=== PATIENT | female | born 1950 | race Caucasian/White ===

== ENCOUNTER 2022-09-02 11:10 | Outpatient (OUT) | payer MEDICARE, OTHER, SELFPAY ==
[2022-09-02 11:58] LABS: Basophils Percent Auto 0.8 % (0.2-2.0); Eosinophils Absolute Auto 0.1 10^3/uL (0.0-0.7); Eosinophils Percent Auto 2.8 % (0.9-7.0); Hematocrit 38.6 % (36.0-48.0); Hemoglobin 12.7 g/dL (12.0-16.0); Immature Granulocytes Abs Auto 0.02 10^3/uL (0.00-0.03); Immature Granulocytes Pct Auto 0.4 % (0.0-0.5); Lymphocytes Absolute Auto 0.9 10^3/uL (1.2-3.8); Lymphocytes Percent Auto 17.9 % (20.5-60.0); Mean Corpuscular HGB Conc 32.9 g/dL (29.9-35.2); Mean Corpuscular Hemoglobin 29.2 pg (26.7-34.0); Mean Corpuscular Volume 88.7 fL (81.0-99.0); Mean Platelet Volume 11.3 fL (9.5-13.5); Monocytes Absolute Auto 0.5 10^3/uL (0.3-0.8); Monocytes Percent Auto 10.6 % (1.7-12.0); Neutrophils Absolute Auto 3.4 10^3/uL (1.4-6.5); Neutrophils Percent Auto 67.5 % (43.0-75.0); Platelet Count 172 10^3/uL (150-450); Red Blood Count 4.35 10^6/uL (4.20-5.40); Red Cell Distribution Width 13.1 % (11.0-15.0); White Blood Count 5.1 10^3/uL (4.0-11.0)
[2022-09-02 12:45] LABS: Alanine Aminotransferase 33 U/L (14-59); Albumin Level 3.6 g/dL (3.4-5.0); Alkaline Phosphatase 104 U/L (46-116); Anion Gap 10.2; Aspartate Amino Transferase 28 U/L (15-37); BUN Creatinine Ratio 22.2; Bilirubin Total 0.6 mg/dL (0.2-1.0); Calcium 8.9 mg/dL (8.5-10.1); Carbon Dioxide 29.5 mmol/L (21.0-32.0); Chloride 104 mmol/L (98-107); Chol HDL Ratio 3.2; Cholesterol 188 mg/dL (<=200); Estimated GFR (African America >60 (>=60); Estimated GFR (Non-African Ame >60 (>=60); Free T3 2.64 pg/mL (2.18-3.98); Globulin 3.6 g/dL; Glucose 108 mg/dL (74-106); HDL Cholesterol 58 mg/dL (40-60); LDL Cholesterol Calculated 111.2 mg/dL; Potassium 3.7 mmol/L (3.5-5.1); Sodium 140 mmol/L (136-145); Thyroid Stimulating Hormone 1.153 uIU/mL (0.358-3.740); Total Protein 7.2 g/dL (6.4-8.2); Triglycerides 94 mg/dL (<=150); VLDL CHOLESTEROL 18.8 mg/dL
[2022-09-02 13:15] LABS: Estimated Average Glucose 123 mg/dL; Glycohemoglobin A1C 5.9 % (4.5-6.2)
[2022-09-03 10:08] LABS: Insulin 10.5 uIU/mL (2.6-24.9)
== END 2022-09-02 11:11 | disposition home or self-care (01) ==
LOC: LAB 11:22
PROVIDERS: PCP Family Medicine; Visit Provider Family Medicine
DX: K21.9 Gastro-esophageal reflux disease without esophagitis (principal); R19.7 Diarrhea, unspecified; G56.00 Carpal tunnel syndrome, unspecified upper limb; E78.5 Hyperlipidemia, unspecified; R73.09 Other abnormal glucose; D64.9 Anemia, unspecified; E55.9 Vitamin D deficiency, unspecified
CPT/HCPCS: 36415; 80053; 80061; 82306; 83036; 83525; 83540; 84436; 84443; 84481; 85025

== ENCOUNTER 2022-12-03 11:13 | Outpatient (OUT) | payer MEDICARE, OTHER, SELFPAY ==
[2022-12-03 13:11] LABS: Bilirubin Urine NEGATIVE (NEGATIVE); Blood Urine SMALL (NEGATIVE); Clarity Urine CLEAR (CLEAR); Color Urine LT. YELLOW (YELLOW); Glucose Urine UA NEGATIVE (NEGATIVE); Ketones Urine NEGATIVE (NEGATIVE); Leukocyte Esterase Urine SMALL (NEGATIVE); Nitrite Urine NEGATIVE (NEGATIVE); Protein Urine NEGATIVE (NEG/TRACE); Specific Gravity Urine <=1.005 (1.005-1.025); Urobilinogen Urine 0.2 EU/dL (0.2-1.0)
[2022-12-03 13:23] LABS: Bacteria Urine NONE SEEN #/HPF (NONE SEEN); Cast Seen? NONE SEEN #/LPF (NONE SEEN); Crystals Seen? None Seen #/HPF (None Seen); Mucus Urine NONE SEEN (NONE SEEN); RBC Urine NONE SEEN #/HPF (0-2); Squamous Epithelial Cell Urine RARE #/LPF (NONE/RARE); Urine Culture Indicated ALREADY ORDERED
== END 2022-12-03 11:14 | disposition home or self-care (01) ==
LOC: LAB 11:15
PROVIDERS: PCP Family Medicine; Visit Provider Family Medicine
DX: R32 Unspecified urinary incontinence (principal)
CPT/HCPCS: 81001; 87086; 87150; 87186

== ENCOUNTER 2024-04-05 10:58 | Outpatient (OUT) | payer MEDICARE, OTHER, SELFPAY ==
--- OUTSIDE RECORDS SUMMARY | 2024-04-05 11:08 | XMS_ITS | CCD ---
Author Organization [facility] Care Team Providers Care [employer] He[employer] Name Role Phone Inessa Logan Primary Care Physician DESMOND, DR WYLIE Admitting Unavailable HOY, DR WYLIE Attending Unavailable KELLEYY, DR WYLIE Primary Care Unavailable HOY, DR WYLIE Consulting Unavailable KELLEYY, DR WYLIE Admitting Unavailable HOY, DR WYLIE Attending Unavailable KELLEYY, DR WYLIE Primary Care Unavailable KELLEYY, DR WYLIE Consulting Unavailable KELLEYY, DR WYLIE Admitting Unavailable HOY, DR WYLIE Attending Unavailable HOY, DR WYLIE Primary Care Unavailable KELLEYY, DR WYLIE Consulting Unavailable INESSA LOGAN Referring Unavailable INESSA LOGAN Primary Care Unavailable REFERRAL, SELF Referring Unavailable REFERRAL, SELF Attending Unavailable REFERRAL, SELF Admitting Unavailable Inessa Logan Consulting Unavailable MD Inessa Logan Consulting Unavailable Zeeshan Melissa Attending Unavailable QUINN FLORES Attending Unavailable Allergies Allergy Classification Reported Allergen(s) Allergy Type Date of Onset Reaction(s) Facility (6 sources) Doxycycline; Translations: [doxycycline] Drug Allergy 07-03-2006 [facility] (6 sources) Erythromycin; Translations: [erythromycin] Drug Allergy 07-03-2006 [facility] (6 sources) Penicillins; Translations: [penicillins] Drug allergy 07-03-2006 [facility] Medications Current Medications Medication Drug Class(es) Dates Sig (Normalized) Sig (Original) cyclobenzaprine hydrochloride 10 mg oral tablet (4 sources) Muscle Relaxant Start: 10-09-2012 take 1 tablet by mouth three times daily as needed for muscle spasms Flexeril 10 mg Tab 10 mg = 1 tab(s), Oral, TID, PRN muscle spasm, may cause drowsiness, # 30 tab(s), Refills(s) 0 Start Date: 10/09/12 Status: Ordered omeprazole 40 mg delayed release oral capsule (2 sources) Proton Pump Inhibitor Start: 10-09-2012 take 1 capsule by mouth twice daily omeprazole 40 mg Cap-EC 40 mg, Oral, BID, Refills(s) 0 Start Date: 10/09/12 Status: Ordered omeprazole 40 mg Cap-EC (2 sources) Start: 10-09-2012 take 1 capsule by mouth twice daily omeprazole 40 mg Cap-EC 40 mg, Oral, BID, Refills(s) 0 Start Date: 10/09/12 Status: Ordered traMADol hydrochloride 50 mg oral tablet (4 sources) Opioid Agonist Start: 10-09-2012 take 1-2 tablets by mouth every six hours as needed for pain Ultram 50 mg Tab 1-2 tabs, Oral, q6hr, PRN Pain, # 20 tab(s), Refills(s) 0 Start Date: 10/09/12 Status: Ordered Problems Active Problems Problem Classification Problem Date Documented Date Episodic/Chronic E Codes: Fall (1 source) Fall; Translations: [Unspecified fall, initial encounter] Onset: 08-04-2021 Episodic Esophageal disorders (4 sources) Gastroesophageal reflux disease 08-26-2013 Chronic Other injuries and conditions due to external causes (1 source) Injury of head; Translations: [Unspecified injury of head, initial encounter] Onset: 08-04-2021 Episodic Residual codes; unclassified (4 sources) Obstructive sleep apnea (adult) (pediatric); Translations: [OBSTRUCTIVE SLEEP APNEA] Onset: 04-15-2022 Chronic Sprains and strains (1 source) Injury of muscle and tendon at neck level; Translations: [Strain of muscle, fascia and tendon at neck level, initial encounter] Onset: 08-04-2021 Episodic Superficial injury; contusion (1 source) Superficial injury of head; Translations: [Contusion of other part of head, initial encounter] Onset: 08-04-2021 Episodic Unclassified (3 sources) COUGH, UNSPECIFIED; Translations: [COUGH, UNSPECIFIED] Onset: 01-09-2022 Unclassified (1 source) CONTACT W/AND (SUSP) EXPOS COVID-19; Translations: [CONTACT W/AND (SUSP) EXPOS COVID-19] Onset: 01-09-2022 Past or Other Problems Problem Classification Problem Date Documented Da te Episodic/Chronic Unclassified (1 source) Exposure to 2019 novel coronavirus; Translations: [Contact with and (suspected) exposure to COVID19] Unclassified (1 source) COUGH, UNSPECIFIED; Translations: [COUGH, UNSPECIFIED] Onset: 01-07-2022 Results Test Name Value Interpretation Reference Range Facility Physician Referralon 024 Physician Referral [id number] #[id number] [facility] Consent for Treatmenton 03-12 Consent for Treatment [id number] #[id number] Normal [facility] [place] Mamm Screen w/CAD if perf and 3D Bilon 04-08-2023 MA Mamm Screen w/CAD if perf and 3D Madi Exam Date/Time: 04/08/2023 12:31 EST Reason for Exam: Z12.31 Report IMPRESSION: BIRADS 1 NEGATIVE, NORMAL INTERVAL FOLLOW-UP Follow-up: 12 MONTH RECALL Density: Scattered tissue. Vascular calcifications: Absent. EXAM: MA Mamm Screen w/CAD if perf and 3D Madi DATE: 04/08/2023 12:10 PM CLINICAL HISTORY: Z12.31. COMPARISONS: 08/30/2021, 11/26/2019, and 11/27/2019. TECHNIQUE: Routine full-field digital mammograms and 3D breast tomosynthesis of both breasts were obtained. FINDINGS: There are no developing masses, suspicious microcalcifications, or areas of architectural distortion identified on the current study. No significant changes are identified from the prior studies, given differences in technique and positioning. Dense Breast: No. CAD analysis was performed and used in the interpretation. Board Certified Radiologists. Accredited by the ACR and FDA. MAMMOGRAPHY IS VERY IMPORTANT TO YOUR HEALTH. THE CURRENT [employer] GUIDELINES RECOMMENDS ANNUAL MAMMOGRAPHY BEGINNING AT AGE 40. THIS FACILITY UTILIZES A REMINDER SYSTEM TO ENSURE ALL PATIENTS RECEIVE REMINDER NOTIFICATIONS AT THE APPROPRIATE TIME BASED ON THE RECOMMENDATIONS OF THIS EXAM. Report Ordering Provider: REFERRAL, SELF FINAL REPORT Dictated: 04/08/2023 4:34 pm Ole Briscoe MD Signed (Electronic Signature): 04/08/2023 4:34 pm Signed by: Ole Briscoe MD Transcribed by: KASSI Technologist: REN Assessment: BI-RADS Category 1-Negative Recommendation: Normal interval follow-up Normal [facility] Covid-19 PCR (CVDTBH)on 12-10 SARS-CoV-2 (COVID-19) RNA LORELEI+probe Ql (Unsp spec) Not detected Normal NOT DETECTED [facility] Comment on above: Result Comment: When diagnostic testing is negative, the possibility of a false negative should be considered in the context of a patient's recent exposures and the presence of clinical signs and symptoms consistent with SARS-CoV-2. This test is not yet approved or cleared by the [place] FDA. When there are no FDA-approved or cleared tests available, and other criteria are met, FDA can make tests available under an emergency access mechanism called an Emergency Use Authorization (EUA). The EUA for this test is supported by the [place] of Health and Human Service's declaration that circumstances exist to justify the emergency use of in vitro diagnostics for the detection and/or diagnosis of the virus that causes COVID-19. This EUA will remain in effect for the duration of the COVID-19 declaration justifying emergency of IVDs, unless it is terminated or revoked by the FDA (after which the test may no longer be used). Performed By: #### [facility] #### [facility] [address] [place] [address] Dr. Trav Fischer [facility] Laboratory Testing Ordered By: [employer] Domain[employer] on 04-20-2021 SARS-CoV-2 (COVID-19) RNA LORELEI+probe Ql (Resp) Not detected Invalid Interpretation Code Not Detected [facility] Comment on above: Result Comment: This nucleic acid amplification test was developed and its performance characteristics determined by [employer]. Nucleic acid amplification tests include RT-PCR and TMA. This test has not been FDA cleared or approved. This test has been authorized by FDA under an Emergency Use Authorization (EUA). This test is only authorized for the duration of time the declaration that circumstances exist justifying the authorization of the emergency use of in vitro diagnostic tests for detection of SARS-CoV-2 virus and/or diagnosis of COVID-19 infection under section 564(b)(1) of the Act, 21 U.S.C. 360bbb-3(b) (1), unless the authorization is terminated or revoked sooner. When diagnostic testing is negative, the possibility of a false negative result should be considered in the context of a patient's recent exposures and the presence of clinical signs and symptoms consistent with COVID-19. An individual without symptoms of COVID-19 and who is not shedding SARS-CoV-2 virus would expect to have a negative (not detected) result in this assay. Performed at: [address] [id number] PhD Irwin Pickens Vital Signs Date Time Vital Sign Value Performing Clinician Savannah triplett 08-04-2021 20:33-0400 Diastolic blood pressure 88 mm[Hg] Aashish Chica [facility] 08-04-2021 20:33-0400 Heart rate 72 /min AashishTueboraner [facility] 08-04-2021 20:33-0400 Mean blood pressure 113 mm[Hg] Aashish Chica [facility] 08-04-2021 20:33-0400 Respiratory rate 16 /min Aashish Chica [facility] 08-04-2021 20:33-0400 SaO2% (BldA) [Mass fraction] 96 % Aashish Chica [facility] 08-04-2021 20:33-0400 Systolic blood pressure 164 mm[Hg] Aashish Chica [facility] 08-04-2021 19:12-0400 Body temperature 98.06 [degF] Aashish Chica [facility] 08-04-2021 19:12-0400 Diastolic blood pressure 83 mm[Hg] Aashish Chica [facility] 08-04-2021 19:12-0400 Heart rate 73 /min Aashish CEDU [facility] 08-04-2021 19:12-0400 Respiratory rate 18 /min Aashish Chica [facility] 08-04-2021 19:12-0400 SaO2% (BldA) [Mass fraction] 97 % Aashish Chica [facility] 08-04-2021 19:12-0400 Systolic blood pressure 147 mm[Hg] Aashish Chica [facility] 08-04-2021 18:53-0400 Body temperature 97.88 [degF] Aashish Chica [facility] 08-04-2021 18:53-0400 Heart rate 78 /min Aashish Chica [facility] 08-04-2021 18:53-0400 SaO2% (BldA) [Mass fraction] 97 % Aashish Chica [facility] 08-04-2021 18:43-0400 Body temperature 97.88 [degF] Aashish Chica [facility] 08-04-2021 18:43-0400 Diastolic blood pressure 89 mm[Hg] Aashish Chica [facility] 08-04-2021 18:43-0400 Heart rate 18 /min Aashish Chica [facility] 08-04-2021 18:43-0400 Systolic blood pressure 158 mm[Hg] Aashish Chica [facility] 08-04-2021 18:38-0400 Respiratory rate 20 /min Aashish Chica [facility] Encounters Encounter Date Encounter Type Care Provider Facility Start: 08-20-2023 End: 08-20-2023 ambulatory QUINN FLORES Not Available Start: 05-28-2023 ambulatory Zeeshan Nuñez lity:[facility] Start: 05-08-2023 ambulatory SELF REFERRAL Facility: [facility] Start: 04-08-2023 End: 04-09-2023 ambulatory SELF REFERRAL Facility:[facility] Start: 04-08-2023 End: 04-08-2023 Patient encounter procedure SELF REFERRAL [facility] Start: 02-07-2023 End: 03-10-[address] [facility] Start: 04-15-2022 End: 04-16-[address] INESSA LOGAN Facility:[facility] Start: 03-13-2022 End: 03-14-[address] INESSA LOGAN Facility:[facility] Start: 01-07-2022 End: 01-07-[address] INESSA LOGAN Facility:[facility] Start: 08-30-2021 End: 08-30-2021 Patient encounter procedure Inessa Logan [facility] Start: 08-04-2021 End: 08-04-2021 Emergency department patient visit Aashish Coto [facility] Start: 04-19-2021 End: 07-19-2021 Patient encounter procedure Lincoln Ballesteros [facility] Payers Date Payer Category Payer Unknown [id number] 1960 Medicare [id number] 1960 Unknown [id number] 1950 Unknown [id number] 2.16.84 [id number] 1950 Unknown [id number] 2.16.84 [id number] 1949 Unknown [id number] 2.16.84 [id number] 1949 Unknown [id number] 2.16.84 [id number] 1949 Unknown [id number] 2.16.8 [id number] 1949 Unknown [id number] 2.16.8 [id number] 1949 Unknown [id number] 2.16.84 [id number] Social History Date Type Detail Facility Tobacco smoking status [facility] Sex Assigned At Female [facility] Tobacco smoking status No Smoking Status Entered [facility] Tobacco smoking status No Smoking Status Entered [facility] Hospital Discharge instructions 08-04-2021 Note Date & Type Note Facility 08-04-2021 Hospital Discharg e instructions Patient Education 08/04/2021 20:46:17 Head Injury, Adult Head Injury, Adult There are many types of head injuries. Head injuries can be as minor as a bump, or they can be a serious medical issue. More severe head injuries include: A jarring injury to the brain (concussion). A bruise (contusion) of the brain. This means there is bleeding in the brain that can cause swelling. A cracked skull (skull fracture). Bleeding in the brain that collects, clots, and forms a bump (hematoma). After a head injury, most problems occur within the first 24 hours, but side effects may occur up to 7 10 days after the injury. It is important to watch your condition for any changes. You may need to be observed in the emergency department or urgent care, or you may be admitted to the hospital. What are the causes? There are many possible causes of a head injury. A serious head injury may be caused by a car accident, bicycle or motorcycle accidents, sports injuries, and falls. What are the symptoms? Symptoms of a head injury include a contusion, bump, or bleeding at the site of the injury. Other physical symptoms may include: Headache. Nausea or vomiting. Dizziness. Feeling tired. Being uncomfortable around bright lights or loud noises. Seizures. Trouble being awakened. Fainting. Mental or emotional symptoms may include: Irritability. Confusion and memory problems. Poor attention and concentration. Changes in eating or sleeping habits. Anxiety or depression. How is this diagnosed? This condition can usually be diagnosed based on your symptoms, a description of the injury, and a physical exam. You may also have imaging tests done, such as a CT scan or MRI. How is this treated? Treatment for this condition depends on the severity and type of injury you have. The main goal of treatment is to prevent complications and to allow the brain time to heal. Mild head injury If you have a mild head injury, you may be sent home and treatment may include: Observation. A responsible adult should stay with you for 24 hours after your injury and check on you often. Physical rest. Brain rest. Pain medicines. Severe head injury If you have a severe head injury, treatment may include: Close observation. This includes hospitalization with frequent physical exams. Medicines to relieve pain, prevent seizures, and decrease brain swelling. Breathing support. This may include using a ventilator. Treatments to manage the swelling inside the brain. Brain surgery. This may be needed to: ?Remove a blood clot. ?Stop the bleeding. ?Remove a part of the skull to allow room for the brain to swell. Follow these instructions at home: Activity Rest and avoid activities that are physically hard or tiring. Make sure you get enough sleep. Limit activities that require a lot of thought or attention, such as: ?Watching TV. ?Playing memory games and puzzles. ?Job-related work or homework. ?Working on the computer, using social media, and texting. Avoid activities that could cause another head injury, such as playing sports, until your health care provider approves. Having another head injury, especially before the first one has healed, can be dangerous. Ask your health care provider when it is safe for you to return to your regular activities, including work or school. Ask your health care provider for a xych-bh-yano plan for gradually returning to activities. Ask your health care provider when you can drive, ride a bicycle, or use heavy machinery. Your ability to react may be slower after a brain injury. Do not do these activities if you are dizzy. Lifestyle Do not drink alcohol until your health care provider approves. Do not use drugs. Alcohol and certain drugs may slow your recovery and can put you at risk of further injury. If it is harder than usual to remember things, write them down. If you are easily distracted, try to do one thing at a time. Talk with family members or close friends when making important decisions. Tell your friends, family, a trusted colleague, and concession worker about your injury, symptoms, and restrictions. Have them watch for any new or worsening problems. General instructions Take flpy-jkp-qwogwdj and prescription medicines only as told by your health care provider. Have someone stay with you for 24 hours after your head injury. This person should watch you for any changes in your symptoms and be ready to seek medical help. Keep all follow-up visits as told by your health care provider. This is important. How is this prevented? Work on improving your balance and strength to avoid falls. Wear a seatbelt when you are in a moving vehicle. Wear a helmet when riding a bicycle, skiing, or doing any other sport or activity that has a risk of injury. If you drink alcohol: ?Limit how much you use to: ?0 1 drink a day for women. ?0 2 drinks a day for men. ?Be aware of how much alcohol is in your drink. In the [place] one drink equals one 12 oz bottle of beer (355 mL), one 5 oz glass of wine (148 mL), or one 1 oz glass of hard liquor (44 mL). Take safety measures in your home, such as: ?Removing clutter and tripping hazards from floors and stairways. ?Using grab bars in bathrooms and handrails by stairs. ?Placing non-slip mats on floors and in bathtubs. ?Improving lighting in dim areas. Get help right away if: You have: ?A severe headache that is not helped by medicine. ?Trouble walking or weakness in your arms and legs. ?Clear or bloody fluid coming from your nose or ears. ?Changes in your vision. ?A seizure. You lose your balance. You vomit. Your pupils change size. Your speech is slurred. Your dizziness gets worse. You faint. You are sleepier than normal and have trouble staying awake. Your symptoms get worse. These symptoms may represent a serious problem that is an emergency. Do not wait to see if the symptoms will go away. Get medical help right away. Call your local emergency services (911 in the [place] Do not drive yourself to the hospital. Summary Head injuries can be minor or they can be a serious medical issue requiring immediate attention. Treatment for this condition depends on the severity and type of injury you have. Ask your health care provider when it is safe for you to return to your regular activities, including work or school. Head injury prevention includes wearing a seat belt in a motor vehicle, using a helmet on a bicycle, limiting alcohol use, and taking safety measures in your home. This information is not intended to replace advice given to you by your health care provider. Make sure you discuss any questions you have with your health care provider. Document Released: 02/24/2006 Document Revised: 03/24/2019 Document Reviewed: 03/19/2019 [employer] Patient Education 2020 [employer]. Follow Up Care 08/04/2021 18:35:47 With:Inessa Escobargloria Address: [address] [place] [id number]- Business (1) When:Within 3 Day(s) [facility] Evaluation + Plan note 08-04-2021 Note Date & Type Note Facility 08-04-2021 Evaluation + Plan note Extrac jw from: Title:ED Note Author:Aashish Coto DO Date :08/04/21 Cervical strain (S16.1XXA: S train of muscle, fascia and tendon at neck level, initial encounter) Chin contusion (S00.83XA: Contusion of other part of head, initial encounter) Closed head injury (S09.90XA: Unspecified injury of head, initial encounter) Fall (W19.XXXA: Unspecified fall, initial encounter) Orders: CT Head or Brain w/o Contrast CT Maxillofacial w/o Contrast CT Spine Cervical w/o Contrast [facility] Evaluation + Plan note Note Date & Type Note Facility Evaluation + Plan note No data available for this section [facility] Hospital Discharge instructions Note Date & Type Note Facility Hospital Discharge instructions No data available for this section [facility] Progress note Note Date & Type Note Facility Progress note No data available for this section [facility] Summary Purpose Family History No Family History Records FoundNo Family History Records Found No data available for this section No Family History Records FoundNo Family History Records Found Advance Directives No Advanced Directives Records FoundNo Advanced Directives Records FoundNo Advanced Directives Records FoundNo Advanced Directives Records Found Additional Source Comments Care Team (unrecognized sect ion and content) Personnel Name: Inessa Logan MD Address: [address] [place] [id number]- Personnel Name: Inessa Logan MD Address: Address: [address] [place] [address]- INFORMATION SOURCE (unrecogn ized section and content) DATE CREATED AUTHOR [facility]/18/2022 [facility] DATE CREATED AUTHOR AUTHOR'S ORGANIZ ATION 03/10/2023 [facility] DATE CREATED AUTHOR AUTHOR'S ORGANIZ ATION 05/26/2023 [facility] DATE CREATED AUTHOR AUTHOR'S ORGANIZ ATION 08/21/2023 [facility] EPIC FOR RECORDS PERTAINING TO PATIENTS WHO ARE OR HAVE BEEN ENROLLED IN A CHEMICAL DEPENDENCY/SUBSTANCEABUSE PROGRAM, SOME INFORMATION MAY BE OMITTED. This clinical summary was aggregated from multiple sources. Caution should be exercised in using it in the provision of clinical care. This summary normalizes information from multiple sources, and as a consequence, information in this document may materially change the coding, format and clinical context of patient data. In addition, data may be omitted in some cases. CLINICAL DECISIONS SHOULD BE BASED ON THE PRIMARY CLINICAL RECORDS. [facility] [employer] provides no warranty or guarantee of the accuracy or completeness of information in this document.
--- NOTE | 2024-04-05 11:26 | XR_ITS ---
The [address] [address] Patient Name: NEHEMIAS COLMENARES MRN: [id number] date: 1950 Sex: F Assigned Patient Location: [facility] Current Patient Location: [facility] Accession/Order Number: [id number] Exam Date: 04/05/2024 11:35 Report Date: 04/05/2024 14:23 At the request of: INESSA LOGAN Procedure: XR DEXA axial skeleton EXAMINATION: XR DEXA axial skeleton HISTORY: Other Specified Bone Density And Structure Disorder COMPARISON: No relevant comparison available. TECHNIQUE: Dual-energy X-ray absorptiometry (DXA) was performed. FINDINGS: SPINE ANALYSIS: Average bone mineral density is 1.171 g/cm2. T-score (standard deviation relative to young adult mean): -0.1 . HIP ANALYSIS: Lowest bone mineral density is within the left femoral neck, 0.67 g/cm2. T-score (standard deviation relative to young adult mean): -1.2 . XR/XR DEXA axial skeleton IMPRESSION: World Health Organization Classification: Osteopenia - Moderate Fracture Risk FRAX: Cannot be calculated. Pharmacologic treatment recommendations * No uniform recommendation applies to all patients. Management plans must be individualized. * Consider initiating pharmacologic treatment in postmenopausal women and men >= 50 years of age who have the following: Primary fracture prevention: * T-score <= - 2.5 at the femoral neck, total hip, lumbar spine, 33% radius (some uncertainty with existing data) by DXA. * Low bone mass (osteopenia: T-score between - 1.0 and - 2.5) at the femoral neck or total hip by DXA with a 10-year hip fracture risk >= 3% or a 10-year major osteoporosis-related fracture risk >= 20% (i.e., clinical vertebral, hip, forearm, or proximal humerus) based on the [place]-adapted FRAXregistered model. Secondary fracture prevention: * Fracture of the hip or vertebra regardless of BMD [4, 5]. * Fracture of proximal humerus, pelvis, or distal forearm in persons with low bone mass (osteopenia: T-score between - 1.0 and - 2.5). The decision to treat should be individualized in persons with a fracture of the proximal humerus, pelvis, or distal forearm who do not have osteopenia or low BMD [12, 13]. Moira MS, Claudine SL, Hansa KL, Elizabeth EM, Etienne KG, AJ, Aimee ES. The clinician's guide to prevention and treatment of osteoporosis. Osteoporos Int. 2021;33(10):1465-1513. doi: 10.1007/a83362-235-65362-u. Epub 2021Jul 05. Erratum in: Osteoporos Int. 2021Oct 04;: PMID: [id number]; PMCID: [id number]. Electronically authenticated by: LEONOR GRAHAM Date: 04/05/2024 14:23
[2024-04-05 12:18] LABS: Basophils Percent Auto 0.9 % (0.2-2.0); Eosinophils Absolute Auto 0.1 10^3/uL (0.0-0.7); Eosinophils Percent Auto 2.8 % (0.9-7.0); Hematocrit 42.3 % (36.0-48.0); Hemoglobin 13.6 g/dL (12.0-16.0); Immature Granulocytes Abs Auto 0.02 10^3/uL (0.00-0.03); Immature Granulocytes Pct Auto 0.4 % (0.0-0.5); Lymphocytes Absolute Auto 1.1 10^3/uL (1.2-3.8); Lymphocytes Percent Auto 23.6 % (20.5-60.0); Mean Corpuscular HGB Conc 32.2 g/dL (29.9-35.2); Mean Corpuscular Volume 93.2 fL (81.0-99.0); Mean Platelet Volume 11.9 fL (9.5-13.5); Monocytes Absolute Auto 0.5 10^3/uL (0.3-0.8); Monocytes Percent Auto 10.1 % (1.7-12.0); Neutrophils Absolute Auto 2.9 10^3/uL (1.4-6.5); Neutrophils Percent Auto 62.2 % (43.0-75.0); Platelet Count 158 10^3/uL (150-450); Red Blood Count 4.54 10^6/uL (4.20-5.40); Red Cell Distribution Width 12.7 % (11.0-15.0); White Blood Count 4.7 10^3/uL (4.0-11.0)
[2024-04-05 12:23] LABS: Estimated Average Glucose 117 mg/dL; Glycohemoglobin A1C 5.7 % (4.5-6.2)
[2024-04-05 12:50] LABS: Alanine Aminotransferase 83 U/L (14-59); Albumin Globulin Ratio 1.1; Albumin Level 3.5 g/dL (3.4-5.0); Alkaline Phosphatase 92 U/L (46-116); Anion Gap 9.2; Aspartate Amino Transferase 56 U/L (15-37); BUN Creatinine Ratio 13.9; Bilirubin Total 0.7 mg/dL (0.2-1.0); Carbon Dioxide 31.8 mmol/L (21.0-32.0); Chloride 103 mmol/L (98-107); Cholesterol 221 mg/dL (<=200); Estimated GFR (African America >60 (>=60 mL/min/1.73m^2); Estimated GFR (Non-African Ame >60 (>=60 mL/min/1.73m^2); Free T3 2.43 pg/mL (2.18-3.98); Globulin 3.3 g/dL; Glucose 104 mg/dL (74-106); HDL Cholesterol 73 mg/dL (40-60); Sodium 140 mmol/L (136-145); Thyroid Stimulating Hormone 1.361 uIU/mL (0.358-3.740); Total Protein 6.8 g/dL (6.4-8.2); Triglycerides 111 mg/dL (<=150); VLDL CHOLESTEROL 22.2 mg/dL
== END 2024-04-05 10:59 | disposition home or self-care (01) ==
PROVIDERS: PCP Family Medicine; Visit Provider Family Medicine
DX: M85.80 Other specified disorders of bone density and structure, unspecified site (principal); Z79.899 Other long term (current) drug therapy; E78.5 Hyperlipidemia, unspecified; D64.9 Anemia, unspecified; E03.9 Hypothyroidism, unspecified; Z12.11 Encounter for screening for malignant neoplasm of colon; R73.01 Impaired fasting glucose; E28.39 Other primary ovarian failure
CPT/HCPCS: 36415; 77080; 80053; 80061; 83036; 84436; 84443; 84481; 85025

== ENCOUNTER 2024-04-08 16:52 | Outpatient (REF) | payer MEDICARE, OTHER, SELFPAY ==
--- OUTSIDE RECORDS SUMMARY | 2024-04-08 16:58 | XMS_ITS | CCD ---
Author Organization [facility] Care Team Providers Care Putty Worker Name Role Phone Inessa Logan Primary Care Physician [phone] DESMOND, DR WYLIE Admitting Unavailable HOY, DR [...] sources) Doxycycline; Translations: [doxycycline] Drug Allergy 07-03-2006 [facility] (6 sources) Erythromycin; Translations: [erythromycin] Drug Allergy 07-03-2006 [facility] (6 sources) Penicillins; Translations: [penicillins] Drug allergy 07-03-2006 [facility] Medications Current Medications Medication Drug Class(es) Dates [...] Range Facility Physician Referralon 024 Physician Referral [id number] #1.00TIFF Normal [facility] Consent for Treatmenton 03-12 Consent for Treatment [id number] #1.00TIFF Normal [facility] [place] Mamm Screen w/CAD if perf and [...] VERY IMPORTANT TO YOUR HEALTH. THE CURRENT [employer] [...] 1-Negative Recommendation: Normal interval follow-up Normal [facility] Covid-19 PCR (CVDTBH)on 12-10 SARS-CoV-2 (COVID-19) RNA LORELEI+probe Ql (Unsp spec) Not detected Normal NOT DETECTED [facility] Comment on above: Result Comment: When diagnostic [...] for this test is supported by the [place] of Health and Human Service's declaration that [...] longer be used). Performed By: #### [facility] #### [facility] [address] [place] [address] Dr. Trav Fischer Reference Laboratory Testing Ordered By: [employer] on 04-20-2021 SARS-CoV-2 (COVID-19) RNA LORELEI+probe Ql (Resp) Not detected Invalid Interpretation Code Not Detected [facility] Comment on above: Result Comment: This nucleic acid amplification test was developed and its performance characteristics determined by [facility]. Nucleic acid amplification tests include RT-PCR and [...] detected) result in this assay. Performed at: [address] [id number] PhD Irwin Pickens Vital Signs Date Time Vital Sign Value Performing Clinician Savannah triplett 08-04-2021 20:33-0400 Diastolic blood pressure 88 mm[Hg] Aashish Chica [facility] 08-04-2021 20:33-0400 Heart rate 72 /min Aashishsceniosner [facility] 08-04-2021 20:33-0400 Mean blood pressure 113 mm[Hg] Aashish Chica [facility] 08-04-2021 20:33-0400 Respiratory rate 16 /min Aashish Chica [facility] 08-04-2021 20:33-0400 SaO2% (BldA) [Mass fraction] 96 % Aashish Chica [facility] 08-04-2021 20:33-0400 Systolic blood pressure 164 mm[Hg] Aashish Chica [facility] 08-04-2021 19:12-0400 Body temperature 98.06 [degF] Aashish Chica [facility] 08-04-2021 19:12-0400 Diastolic blood pressure 83 mm[Hg] Aashish Chica [facility] 08-04-2021 19:12-0400 Heart rate 73 /min Aashish [employer] [facility] 08-04-2021 19:12-0400 Respiratory rate 18 /min Aashish Chica [facility] 08-04-2021 19:12-0400 SaO2% (BldA) [Mass fraction] 97 % Aashish Chica [facility] 08-04-2021 19:12-0400 Systolic blood pressure 147 mm[Hg] Aashish Chica [facility] 08-04-2021 18:53-0400 Body temperature 97.88 [degF] Aashish Chica [facility] 08-04-2021 18:53-0400 Heart rate 78 /min Aashish Chica [facility] 08-04-2021 18:53-0400 SaO2% (BldA) [Mass fraction] 97 % Aashish Chica [facility] 08-04-2021 18:43-0400 Body temperature 97.88 [degF] Aashish Chica [facility] 08-04-2021 18:43-0400 Diastolic blood pressure 89 mm[Hg] Aashish Chica [facility] 08-04-2021 18:43-0400 Heart rate 18 /min Aashish Chica [facility] 08-04-2021 18:43-0400 Systolic blood pressure 158 mm[Hg] Aashish Chica [facility] 08-04-2021 18:38-0400 Respiratory rate 20 /min Aashish Chica [facility] Encounters Encounter Date Encounter Type Care Provider Facility Start: 08-20-2023 End: 08-20-2023 ambulatory QUINN FLORES Not Available Start: 05-28-2023 ambulatory Zeeshan Nuñez lity:[facility] Start: 05-08-2023 ambulatory SELF REFERRAL Facility: [facility] Start: 04-08-2023 End: 04-09-2023 ambulatory SELF REFERRAL Facility[facility] Start: 04-08-2023 End: 04-08-2023 Patient encounter procedure SELF REFERRAL [facility] Start: 02-07-2023 End: 03-10-2023 ambulatory INESSA LOGAN [facility] Start: 04-15-2022 End: 04-16-[address] INESAS LOGAN Facility:[facility] Start: 03-13-2022 End: 03-14-[address] INESSA LOGAN Facility:[facility] Start: 01-07-2022 End: 01-07-[address] INESSA LOGAN Facility:[facility] Start: 08-30-2021 End: 08-30-2021 Patient encounter procedure Inessa Logan [facility] Start: 08-04-2021 End: 08-04-2021 Emergency department patient visit Aashish Coto [facility] Start: 04-19-2021 End: 07-19-2021 Patient encounter procedure Lincoln Ballesteros [facility] Payers Date Payer Category Payer Unknown [id number] 1960 Medicare [id number] 1960 Unknown [id number] 1950 Unknown [id number] 2.16.84 [id number] 1950 Unknown [id number] 2.16.84 [id number] 1950 Unknown [id number] 2.16.84 [id number] 1950 Unknown [id number] 2.16.84 [id number] 1950 Unknown [id number] 2.16.8 [id number] 1950 Unknown [id number] 2.16.8 [id number] 1950 Unknown [id number] 2.16.84 [id number] Social History Date Type Detail Facility Tobacco smoking status [facility] Sex Assigned At Female [facility] Tobacco smoking status No Smoking Status Entered [facility] Tobacco smoking status No Smoking Status Entered [facility] Hospital Discharge instructions 08-04-2021 Note Date & [...] Ask your health care provider for a hety-xm-ezum plan for gradually returning to activities. Ask [...] your friends, family, a trusted colleague, and framework developer about your injury, symptoms, and restrictions. Have them watch for any new or worsening problems. General instructions Take zddd-pvp-ewuyqaj and prescription medicines only as told by [...] 02/24/2006 Document Revised: 03/24/2019 Document Reviewed: 03/19/2019 [employer] Patient Education 2020 [employer]. Follow Up Care 08/04/2021 18:35:47 With:Inessa Escobargloria Address: [address] [place] [phone]- Business (1) When:Within 3 Day(s) [facility] Evaluation + Plan note 08-04-2021 Note Date [...] w/o Contrast CT Spine Cervical w/o Contrast [facility] Evaluation + Plan note Note Date & Type Note Facility Evaluation + Plan note No data available for this section [facility] Hospital Discharge instructions Note Date & Type Note Facility Hospital Discharge instructions No data available for this section [facility] Progress note Note Date & Type Note Facility Progress note No data available for this section [facility] Summary Purpose Family History No Family History Records FoundNo Family History Records Found No data available for this section No Family History Records FoundNo Family History Records Found Advance Directives No Advanced Directives Records FoundNo Advanced Directives Records FoundNo Advanced Directives Records FoundNo Advanced Directives Records Found Additional Source Comments Care Team (unrecognized sect ion and content) Personnel Name: Inessa Logan MD Address: [address] [place] [address]- Personnel Name: Inessa Logan MD Address: Address: [address] [place] [address]- INFORMATION SOURCE (unrecogn ized section and content) DATE CREATED AUTHOR [facility]18/2022 [facility] DATE CREATED AUTHOR AUTHOR'S ORGANIZ ATION 03/10/2023 [facility] DATE CREATED AUTHOR AUTHOR'S ORGANIZ ATION 05/26/2023 [facility] DATE CREATED AUTHOR AUTHOR'S ORGANIZ ATION 08/21/2023 [facility] EPIC FOR RECORDS PERTAINING TO [...] THE PRIMARY CLINICAL RECORDS. [facility] [employer] provides no warranty or guarantee of the accuracy or completeness of information in this document.
[2024-04-08 17:32] LABS: Internal Control Within Normal Limits; Occult Blood Positive
== END 2024-04-08 16:53 | disposition home or self-care (01) ==
LOC: LAB 16:52
PROVIDERS: PCP Family Medicine; Visit Provider Family Medicine
DX: Z79.899 Other long term (current) drug therapy (principal); E78.5 Hyperlipidemia, unspecified; D64.9 Anemia, unspecified; E03.9 Hypothyroidism, unspecified; Z12.11 Encounter for screening for malignant neoplasm of colon; R73.01 Impaired fasting glucose
CPT/HCPCS: G0328

== ENCOUNTER 2024-04-14 12:38 | Outpatient (OUT) | payer MEDICARE, OTHER, SELFPAY ==
--- OUTSIDE RECORDS SUMMARY | 2024-04-14 12:58 | XMS_ITS | CCD ---
Author Organization [facility] Care Team Providers Care Manager Wellness Name Role Phone Inessa Logan Primary Care Physician HELLEN, DR WYLIE Admitting Unavailable HELLEN, DR WYLIE Attending Unavailable HELLEN, DR WYLIE Primary Care Unavailable HELLEN, DR WYLIE Consulting Unavailable KELLEYY, DR WYLIE Admitting Unavailable KELLEYY, DR WYLIE Attending Unavailable KELLEYY, DR WYLIE Primary Care Unavailable HELLEN, DR WYLIE Consulting Unavailable HELLEN, DR WYLIE Admitting Unavailable HELLEN, DR WYLIE Attending Unavailable HELLEN, DR WYLIE Primary Care Unavailable HELLEN, DR WYLIE Consulting Unavailable INESSA LOGAN Referring IENSSA Rucker Primary Care Unavailable REFERRAL, SELF Referring Unavailable REFERRAL, SELF Attending Unavailable REFERRAL, SELF Admitting Unavailable Inessa Logan Consulting Unavailable MD Inessa Logan Consulting Unavailable Zeeshan Melissa Attending Unavailable QUINN FLORES Attending Unavailable Inessa Logan MD Primary Care Provider [phone] Allergies Allergy Classification Reported Allergen(s) Allergy Type Date of Onset Reaction(s) Facility (7 sources) Doxycycline; Translations: [doxycycline] Drug Allergy 07-03-2006 [facility] (7 sources) Erythromycin; Translations: [erythromycin] Drug Allergy 07-03-2006 Nausea And Vomiting [facility] (7 sources) Penicillins; Translations: [penicillins] Drug allergy 07-03-2006 Other (See Comments) [facility] Medications Current Medications Medication Drug Class(es) [...] omeprazole 40 mg delayed release oral capsule (3 sources) Proton Pump Inhibitor Start: 10-09-2012 take 1 capsule by mouth in the morning omeprazole (PriLOSEC) 40 mg capsule Take 1 capsule (40 mg total) by mouth in the morning. 30 capsule 1 05/13/2022 Active omeprazole 40 mg Cap-EC (2 sources) Start: [...] Range Facility Physician Referralon 024 Physician Referral [id number] #1.00TIFF Normal [facility] Consent for Treatmenton 03-12 Consent for Treatment [id number] #1.00TIFF Normal [facility] [place] Mamm Screen w/CAD if perf and [...] VERY IMPORTANT TO YOUR HEALTH. THE CURRENT [employer] [...] 1-Negative Recommendation: Normal interval follow-up Normal [facility] Covid-19 PCR (CVDTBH)on 12-10 SARS-CoV-2 (COVID-19) RNA LORELEI+probe Ql (Unsp spec) Not detected Normal NOT DETECTED [facility] Comment on above: Result Comment: When [...] for this test is supported by the [place] of Health and Human Service's declaration that [...] longer be used). Performed By: #### [facility] #### [facility] [address] [place] [address] Dr. Trav Fischer Reference Laboratory Testing Ordered By: [facility] [employer] on 04-20-2021 SARS-CoV-2 (COVID-19) RNA LORELEI+probe Ql (Resp) Not detected Invalid Interpretation Code Not Detected [facility] Comment on above: Result Comment: This nucleic acid amplification test was developed and its performance characteristics determined by [employer]. Nucleic acid amplification tests include RT-PCR and [...] detected) result in this assay. Performed at: [address] [id number] PhD Irwin Pickens Vital Signs Date Time Vital Sign Value Performing Clinician Savannah triplett 08-04-2021 20:33-0400 Diastolic blood pressure 88 mm[Hg] Aashish Hashdoc [facility] 08-04-2021 20:33-0400 Heart rate 72 /min [facility] Hashdoc [facility] 08-04-2021 20:33-0400 Mean blood pressure 113 mm[Hg] Aashish Chica [facility] 08-04-2021 20:33-0400 Respiratory rate 16 /min Aashish Hashdoc [facility] 08-04-2021 20:33-0400 SaO2% (BldA) [Mass fraction] 96 % Aashish Hashdoc [facility] 08-04-2021 20:33-0400 Systolic blood pressure 164 mm[Hg] [employer]ashish[employer] [facility] 08-04-2021 19:12-0400 Body temperature 98.06 [degF] Aashish Hashdoc [facility] 08-04-2021 19:12-0400 Diastolic blood pressure 83 mm[Hg] [employer] [facility] 08-04-2021 19:12-0400 Heart rate 73 /min Aashish Chica [facility] 08-04-2021 19:12-0400 Respiratory rate 18 /min Aashish Chica [facility] 08-04-2021 19:12-0400 SaO2% (BldA) [Mass fraction] 97 % Aashish Chica [facility] 08-04-2021 19:12-0400 Systolic blood pressure 147 mm[Hg] Aashish Chica [facility] 08-04-2021 18:53-0400 Body temperature 97.88 [degF] Aashish Chica [facility] 08-04-2021 18:53-0400 Heart rate 78 /min Aashish Chica [facility] 08-04-2021 18:53-0400 SaO2% (BldA) [Mass fraction] 97 % Aashish Chica [facility] 08-04-2021 18:43-0400 Body temperature 97.88 [degF] Aashish Chica [facility] 08-04-2021 18:43-0400 Diastolic blood pressure 89 mm[Hg] Aashish Chica [facility] 08-04-2021 18:43-0400 Heart rate 18 /min Aashish Chica [facility] 08-04-2021 18:43-0400 Systolic blood pressure 158 mm[Hg] Aashish Chica [facility] 08-04-2021 18:38-0400 Respiratory rate 20 /min Aashish Chica [facility] Encounters Encounter Date Encounter Type Care Provider Facility Start: 04-13-2024 End: 04-14-2024 Telephone encounter Lucie Whyte CMA [facility] Start: 08-20-2023 End: 08-20-2023 ambulatory QUINN FLORES Not Available Start: 05-28-2023 ambulatory Zeeshan Melissa Fackathleen lity:[facility] Start: 05-08-2023 ambulatory SELF REFERRAL Facility: [facility] Start: 04-08-2023 End: 04-09-2023 ambulatory SELF REFERRAL Facility[facility] Start: 04-08-2023 End: 04-08-2023 Patient encounter procedure SELF REFERRAL [facility] Start: 02-07-2023 End: 03-10-2023 ambulatory INESSA LOGAN [facility] Start: 04-15-2022 End: 04-16-[address] INESSA LOGAN Facility:[facility] Start: 03-13-2022 End: 03-14-[address] INESSA LOGAN Facility:[facility] Start: 01-07-2022 End: 01-07-[address] INESSA LOGAN Facility:[facility] Start: 08-30-2021 End: 08-30-2021 Patient encounter procedure Inessa Logan [facility] Start: 08-04-2021 End: 08-04-2021 Emergency department patient visit Aashish Coto [facility] Start: 04-19-2021 End: 07-19-2021 Patient encounter procedure Lincoln Ballesteros [facility] Procedures Date Procedure Procedure Detail Performing Clinician Start: 05-13-2022 Colonoscopy Lucie Whyte CMA Plan of Treatment Date Care Activity Detail Author Start: 05-13-2032 Screening for malign ant neoplasm of colon Colonoscopy [facility] Start: 11-09-2023 COVID-19 Vaccine () COVID-19 Vaccine () [facility] Start: 11-09-2023 Influenza vaccination Influenza Vacc ine [facility] Start: 05-14-2023 Adult BMI Screening Adult BMI Screen ing [facility] Start: 05-14-2023 Tobacco Screening Tobacco Screening [facility] Start: 2014 Fall Risk Screening Fall Risk Screen ing [facility] Start: 1968 DTaP,Tdap and Td Vaccines (1 - Tdap) DTaP,Tdap and Td Vaccines (1 - Tdap) [facility] Start: 1961 Depression Screening Depression Scre ening [facility] Payers Date Payer Category Payer Managed Care Other (unspecified) [facility] [id number] 2020 Unknown [id number] 2015 Medicare MEDICARE [id number] 1959 Medicare [id number] 1959 Unknown [id number] 1949 Unknown [id number] 1949 Unknown [id number] 1949 Unknown [id number] 1949 Unknown [id number] 1949 Unknown [id number] 1949 Unknown [id number] 1949 Unknown [id number] Social History Date Type Detail Facility Tobacco smoking status Former smoker [facility] Start: 08-19-2018 End: 05-13-2022 Sex Assigned At Female [facility] Tobacco smoking status No Smokin g Status Entered [facility] Tobacco smoking status No Smokin g Status Entered [facility] Start: 05-13-2022 Tobacco smoking stat [facility] Ex-smoker [facility] Start: 03-10-1966 End: 03-10-1982 History of tobacco use Current smoker [facility] Start: 03-10-1966 End: 03-10-1982 History of tobacco use Cigarette Smoker [facility] Start: 08-19-2018 End: 05-13-2022 Cigarettes smoked current (pack per day) - Reported 0.5 [facility] Start: 05-13-2022 Tobacco use and exposure Smokeless tobacco non-user [facility] Start: 05-14-2022 Alcoholic beverage intake Ex-drinker (finding) [facility] Childcare Unknown [facility] Start: 1950 Sex assigned at Not on file P [facility] Start: 10-13-2014 Sex Female (finding) [facility] Note 04-13-2024 Telephone Encounter - Lucie Whyte CMA - 04/13/2024 1:12 PM EST Note Date & Type Note Facility 02-04-2025 Miscellaneous Notes Formattin g of this note might be different from the original. The patient called & said that Dr Logan was supposed to call & have us fax over the results of her Colonoscopy, & EGD,& Fluoroscopy. I called Dr Logan's office & they said that they had already received everything that they needed. documented in this encounter [facility] Telephone encounter Note 04-13-2024 Telephone Encounter - Lucie Whyte CMA - 04/13/2024 1:12 PM EST Note Date & Type Note Facility 04-13-2024 Telephone encount er Note The patient called & said that Dr Logan was supposed to call & have us fax over the results of her Colonoscopy, & EGD,& Fluoroscopy. I called Dr Logan's office & they said that they had already received everything that they needed. [facility] Hospital Discharge instructions 08-04-2021 Note Date [...] Ask your health care provider for a [id number] plan for gradually returning to activities. Ask [...] your friends, family, a trusted colleague, and workers compensation claims supervisor about your injury, symptoms, and restrictions. Have them watch for any new or worsening problems. General instructions Take gyzw-rsx-ujioskc and prescription medicines only as told by [...] 02/24/2006 Document Revised: 03/24/2019 Document Reviewed: 03/19/2019 [employer] Patient Education 2020 [employer]. Follow Up Care 08/04/2021 18:35:47 With:Inessa Hellen Address: [address] [place], [place] [address]- Business (1) When:Within 3 Day(s) [facility] Evaluation + Plan note 08-04-2021 Note [...] w/o Contrast CT Spine Cervical w/o Contrast [facility] Evaluation + Plan note Note Date & Type Note Facility Evaluation + Plan note No data available for this section [facility] Hospital Discharge instructions Note Date & Type Note Facility Hospital Discharge instructions No data available for this section [facility] Instructions Note Date & Type Note Facility Instructions Not on filedocumented in this en counter [facility] Progress note Note Date & Type Note Facility Progress note No data available for this section [facility] Summary Purpose Family History No Family History Records FoundNo Family History Records Found No data available for this section No Family History Records FoundNo Family History Records Found Advance Directives No Advanced Directives Records FoundNo Advanced Directives Records FoundNo Advanced Directives Records FoundNo Advanced Directives Records Found Additional Source Comments Care Team (unrecognized sect ion and content) Manager Wellness Relationship Specialty Start Date End Date Inessa Logan MD PCP - General Family Medicine 05/03/22 INFORMATION SOURCE (unrecogn ized section and content) DATE CREATED AUTHOR 04/18/2022 [facility] DATE CREATED AUTHOR AUTHOR'S ORGANIZ ATION 03/10/2023 [facility] DATE CREATED AUTHOR AUTHOR'S ORGANIZ ATION 05/26/2023 [facility] DATE CREATED AUTHOR AUTHOR'S ORGANIZ ATION 08/21/2023 [facility] EPIC FOR RECORDS PERTAINING [...] BE BASED ON THE PRIMARY CLINICAL RECORDS. [employer] provides no warranty or guarantee of the accuracy or completeness of information in this document.
[2024-04-14 13:30] LABS: Alanine Aminotransferase 73 U/L (14-59); Albumin Globulin Ratio 1.2; Albumin Level 3.8 g/dL (3.4-5.0); Alkaline Phosphatase 79 U/L (46-116); Anion Gap 10.5; Aspartate Amino Transferase 56 U/L (15-37); BUN Creatinine Ratio 12.8; Bilirubin Total 1.1 mg/dL (0.2-1.0); Calcium 9.1 mg/dL (8.5-10.1); Carbon Dioxide 31.8 mmol/L (21.0-32.0); Chloride 104 mmol/L (98-107); Estimated GFR (African America >60 (>=60 mL/min/1.73m^2); Estimated GFR (Non-African Ame >60 (>=60 mL/min/1.73m^2); Globulin 3.2 g/dL; Glucose 97 mg/dL (74-106); Potassium 4.3 mmol/L (3.5-5.1); Sodium 142 mmol/L (136-145)
== END 2024-04-14 12:39 | disposition home or self-care (01) ==
LOC: LAB 12:39
PROVIDERS: PCP Family Medicine; Visit Provider Family Medicine
DX: R94.5 Abnormal results of liver function studies (principal)
CPT/HCPCS: 36415; 80053

== ENCOUNTER 2024-04-29 13:49 | Outpatient (OUT) | payer MEDICARE, OTHER, SELFPAY ==
--- OUTSIDE RECORDS SUMMARY | 2024-04-29 14:07 | XMS_ITS | CCD ---
Author Organization [facility] Care Team Providers Care Nuclear Cardiology Technologist Name Role Phone Inessa Logan Primary Care [...] DR WYLIE Consulting Unavailable INESSA LOGAN Referring INESSA Rucker Primary Care Unavailable REFERRAL, SELF Referring Unavailable REFERRAL, SELF Attending Unavailable REFERRAL, SELF Admitting Unavailable Inessa Logan Consulting Unavailable MD Inessa Logan Consulting Unavailable Zeeshan Melissa Attending Unavailable QUINN FLORES Attending Unavailable Inessa Logan MD Primary Care Provider [phone] Allergies Allergy Classification Reported Allergen(s) Allergy Type Date of Onset Reaction(s) Facility (7 sources) Doxycycline; Translations: [doxycycline] Drug Allergy 07-03-2006 [facility] (7 sources) Erythromycin; Translations: [erythromycin] Drug Allergy 07-03-2006 Nausea And Vomiting [facility] (7 sources) Penicillins; Translations: [penicillins] Drug allergy 07-03-2006 Other (See Comments) [facility] Medications Current Medications Medication Drug Class(es) [...] Range Facility Physician Referralon 024 Physician Referral [id number] #[id number] Normal [facility] Consent for Treatmenton 03-12 Consent for Treatment [id number] #1.00TIFF Normal [facility] [place] Mamm Screen w/CAD if perf and [...] VERY IMPORTANT TO YOUR HEALTH. THE CURRENT [employer] [...] 1-Negative Recommendation: Normal interval follow-up Normal [facility] Covid-19 PCR (CVDTBH)on 12-10 SARS-CoV-2 (COVID-19) RNA LORELEI+probe Ql (Unsp spec) Not detected Normal NOT DETECTED [facility] Comment on above: Result Comment: When [...] for this test is supported by the Unbundler of Health and Human Service's declaration that [...] longer be used). Performed By: #### C [facility] #### [facility] [address] [place] [address] Dr. Trav Fischer Reference Laboratory Testing Ordered By: [facility] Domain[employer] on 04-20-2021 SARS-CoV-2 (COVID-19) RNA LORELEI+probe Ql (Resp) Not detected Invalid Interpretation Code Not Detected [facility] [employer] Comment on above: Result Comment: This nucleic acid amplification test was developed and its performance characteristics determined by [employer]. Nucleic acid amplification tests include RT-PCR and [...] detected) result in this assay. Performed at: [address] [id number] PhD Irwin Pickens Vital Signs Date Time Vital Sign Value Performing Clinician Savannah triplett 08-04-2021 20:33-0400 Diastolic blood pressure 88 mm[Hg] Aashish [facility] 08-04-2021 20:33-0400 Heart rate 72 /min [facility] 08-04-2021 20:33-0400 Mean blood pressure 113 mm[Hg] Aashish Chica [facility] 08-04-2021 20:33-0400 Respiratory rate 16 /min Aashish [facility] 08-04-2021 20:33-0400 SaO2% (BldA) [Mass fraction] 96 % Aashish [facility] 08-04-2021 20:33-0400 Systolic blood pressure 164 mm[Hg] [employer]ashish[employer] [facility] 08-04-2021 19:12-0400 Body temperature 98.06 [degF] Aashish [facility] 08-04-2021 19:12-0400 Diastolic blood pressure 83 mm[Hg] [employer] [facility] 08-04-2021 19:12-0400 Heart rate 73 /min Aashish Chica [facility] 08-04-2021 19:12-0400 Respiratory rate 18 /min Aashish Chica [facility] 08-04-2021 19:12-0400 SaO2% (BldA) [Mass fraction] 97 % Aashish Chica [facility] 08-04-2021 19:12-0400 Systolic blood pressure 147 mm[Hg] Aashish Chica [facility] 08-04-2021 18:53-0400 Body temperature 97.88 [degF] Aashish Chica [facility] 08-04-2021 18:53-0400 Heart rate 78 /min Aashish Chica [facility] 08-04-2021 18:53-0400 SaO2% (BldA) [Mass fraction] 97 % Aashish Chica [facility] 08-04-2021 18:43-0400 Body temperature 97.88 [degF] Aashish Chica [facility] 08-04-2021 18:43-0400 Diastolic blood pressure 89 mm[Hg] Aashish Chica [facility] 08-04-2021 18:43-0400 Heart rate 18 /min Aashish Chica [facility] 08-04-2021 18:43-0400 Systolic blood pressure 158 mm[Hg] Aashish Chica [facility] 08-04-2021 18:38-0400 Respiratory rate 20 /min Aashish Chica [facility] Encounters Encounter Date Encounter Type Care Provider Facility Start: 04-13-2024 End: 04-14-2024 Telephone encounter Lucie Whyte CMA [facility] Start: 08-20-2023 End: 08-20-2023 ambulatory QUINN FLORES Not Available Start: 05-28-2023 ambulatory Zeeshan Melissa Fackathleen lity:[facility] Start: 05-08-2023 ambulatory SELF REFERRAL Facility: [facility] Start: 04-08-2023 End: 04-09-2023 ambulatory SELF REFERRAL Facility:[facility] Start: 04-08-2023 End: 04-08-2023 Patient encounter procedure SELF REFERRAL [facility] Start: 02-07-2023 End: 03-10-2023 ambulatory INESSA LOGAN [facility] Start: 04-15-2022 End: 04-16-[address] INESSA LOGAN Facility:[facility] Start: 03-13-2022 End: 03-14-[address] INESSA LOGAN Facility:[facility] Start: 01-07-2022 End: 01-07-[address] INESSA LOGAN Facility:[facility] Start: 08-30-2021 End: 08-30-2021 Patient encounter procedure Inessa Logan [facility] Start: 08-04-2021 End: 08-04-2021 Emergency department patient visit Aashish Coto [facility] Start: 04-19-2021 End: 07-19-2021 Patient encounter procedure Lincoln Ballesteros [facility] Procedures Date Procedure Procedure Detail Performing Clinician Start: 05-13-2022 Colonoscopy Lucie Whyte CMA Plan of Treatment Date Care Activity Detail Author Start: 05-13-2032 Screening for malign ant neoplasm of colon Colonoscopy [facility] Start: 11-09-2023 COVID-19 Vaccine () COVID-19 Vaccine () [facility] Start: 11-09-2023 Influenza vaccination Influenza Vacc ine [facility] Start: 05-14-2023 Adult BMI Screening Adult BMI Screen ing [facility] Start: 05-14-2023 Tobacco Screening Tobacco Screening [facility] Start: 2014 Fall Risk Screening Fall Risk Screen ing [facility] Start: 1968 DTaP,Tdap and Td Vaccines (1 - Tdap) DTaP,Tdap and Td Vaccines (1 - Tdap) [facility] Start: 1961 Depression Screening Depression Scre ening [facility] Payers Date Payer Category Payer Managed Care Other (unspecified) [facility] [id number] 2020 Unknown [id number] 2015 Medicare MEDICARE [id number] 1959 Medicare [id number] 1959 Unknown [id number] 1949 Unknown [id number] 1949 Unknown [id number] 1949 Unknown [id number] 1949 Unknown [id number] 1949 Unknown [id number] 1949 Unknown [id number] 1949 Unknown [id number] Social History Date Type Detail Facility Tobacco smoking status Former smoker [facility] Start: 08-19-2018 End: 05-13-2022 Sex Assigned At Female [facility] Tobacco smoking status No Smokin g Status Entered [facility] Tobacco smoking status No Smokin g Status Entered [facility] Start: 05-13-2022 Tobacco smoking stat [facility] Ex-smoker [facility] Start: 03-10-1966 End: 03-10-1982 History of tobacco use Current smoker [facility] Start: 03-10-1966 End: 03-10-1982 History of tobacco use Cigarette Smoker [facility] Start: 08-19-2018 End: 05-13-2022 Cigarettes smoked current (pack per day) - Reported 0.5 [facility] Start: 05-13-2022 Tobacco use and exposure Smokeless tobacco non-user [facility] Start: 05-14-2022 Alcoholic beverage intake Ex-drinker (finding) [facility] Childcare Unknown [facility] Start: 1950 Sex assigned at Not on file P [facility] Start: 10-13-2014 Sex Female (finding) [facility] Note 04-13-2024 Telephone Encounter - uLcie Whyte CMA - 04/13/2024 1:12 PM EST [...] that they needed. documented in this encounter [facility] Telephone encounter Note 04-13-2024 Telephone Encounter - [...] had already received everything that they needed. [facility] Hospital Discharge instructions 08-04-2021 Note Date & [...] Ask your health care provider for a kvsy-po-tyxk plan for gradually returning to activities. Ask [...] your friends, family, a trusted colleague, and progress worker about your injury, symptoms, and restrictions. Have them watch for any new or worsening problems. General instructions Take zhek-mer-ioxmmjx and prescription medicines only as told by [...] 02/24/2006 Document Revised: 03/24/2019 Document Reviewed: 03/19/2019 [employer] Patient Education 2020 [employer]. Follow Up Care 08/04/2021 18:35:47 With:Inessa Hellen Address: [address] [place], [place] [id number]- Business (1) When:Within 3 Day(s) [facility] Evaluation + Plan note 08-04-2021 Note [...] w/o Contrast CT Spine Cervical w/o Contrast [facility] Evaluation + Plan note Note Date & Type Note Facility Evaluation + Plan note No data available for this section [facility] Hospital Discharge instructions Note Date & Type Note Facility Hospital Discharge instructions No data available for this section [facility] Instructions Note Date & Type Note Facility Instructions Not on filedocumented in this en counter [facility] Progress note Note Date & Type Note Facility Progress note No data available for this section [facility] Summary Purpose Family History No Family History Records FoundNo Family History Records Found No data available for this section No Family History Records FoundNo Family History Records Found Advance Directives No Advanced Directives Records FoundNo Advanced Directives Records FoundNo Advanced Directives Records FoundNo Advanced Directives Records Found Additional Source Comments Care Team (unrecognized sect ion and content) Nuclear Cardiology Technologist Relationship Specialty Start Date End Date Inessa Logna MD PCP - General Family Medicine 05/03/22 INFORMATION SOURCE (unrecogn ized section and content) DATE CREATED AUTHOR 04/18/2022 [facility] DATE CREATED AUTHOR AUTHOR'S ORGANIZ ATION 03/10/2023 [facility] DATE CREATED AUTHOR AUTHOR'S ORGANIZ ATION 05/26/2023 [facility] DATE CREATED AUTHOR AUTHOR'S ORGANIZ ATION 08/21/2023 [facility] dical Specialists EPIC FOR RECORDS PERTAINING [...] BE BASED ON THE PRIMARY CLINICAL RECORDS. [employer] provides no warranty or guarantee of the accuracy or completeness of information in this document.
[2024-04-29 15:42] LABS: Alanine Aminotransferase 59 U/L (14-59); Albumin Globulin Ratio 1.1; Albumin Level 3.6 g/dL (3.4-5.0); Alkaline Phosphatase 85 U/L (46-116); Anion Gap 8.9; Aspartate Amino Transferase 44 U/L (15-37); BUN Creatinine Ratio 20.5; Bilirubin Total 0.6 mg/dL (0.2-1.0); Calcium 9.5 mg/dL (8.5-10.1); Carbon Dioxide 31.4 mmol/L (21.0-32.0); Chloride 104 mmol/L (98-107); Estimated GFR (African America >60 (>=60 mL/min/1.73m^2); Estimated GFR (Non-African Ame >60 (>=60 mL/min/1.73m^2); Globulin 3.4 g/dL; Glucose 91 mg/dL (74-106); Potassium 4.3 mmol/L (3.5-5.1); Sodium 140 mmol/L (136-145)
== END 2024-04-29 13:50 | disposition home or self-care (01) ==
LOC: LAB 13:50
PROVIDERS: PCP Family Medicine; Visit Provider Family Medicine
DX: K76.0 Fatty (change of) liver, not elsewhere classified (principal)
CPT/HCPCS: 36415; 80053

== ENCOUNTER 2024-12-08 13:57 | Outpatient (OUT) | payer MEDICARE, OTHER, SELFPAY ==
--- OUTSIDE RECORDS SUMMARY | 2024-11-24 12:45 | XMS_ITS | Encounter Summary ---
Author Organization [facility] Address [address], [address] [place] [address] Care Team Providers Care Pre Wave Assembler Name Role Phone Lucas Macedo MD Primary Care Provider [phone] Encounter Details Date Type Department Care Team (Latest Contact Info) Description 11/24/2024 12:45 PM EDT - 11/24/2024 11:59 PM EDT Hospital Encounter [facility] [address] [place], [place] [phone] Ko Weston, PT Discharge Disposition: Home or Self Care Social History Tobacco Use Types Packs/Day Years Used Date Smoking Tobacco: Never Assessed Comments Unknown Sex and Gender Information Value Date Recorded Sex Assigned at Not on file Legal Sex Female 2:05 PM EDT Gender Identity Not on file Sexual Orientation Not on file documented as of this encounter Progress Notes * Ko Weston, PT - 11/24/2024 12:45 PM EDT Images from the original note were not included. [facility] Out[facility] Physical Therapy Daily Note Date: 11/24/2024 Patient Name: Amy Patterson : 1950 (73 y.o.) Referring Provider (secondary): Addi Diagnosis: Right Grade 3 ankle sprain Treatment Diagnosis: Right ankle pain Onset Date: 10/27/24 PT Insurance Information: Medicare Total # of Visits Approved: 8 Per Physician Order Total # of Visits to Date: 2 Plan of Care/Certification Expiration Date: 02/20/25 Pre-Treatment Pain: 0/10 Subjective: 1245: Ill last night I think it was something I ate. Feeling better now. Ankle is doing better. Less swelling. Assessment Assessment: MIld improvement in ROM noted today. Did well with balance work with minor instability.Denies pain throughout session. Will continue to progress strength, balance and ROM as able. Plan Continue with current plan of care Exercises/Modalities/Manual: See DocFlow Sheet Education: Education on progression of exercises Goals (Total # of Visits to Date: 2) Short Term Goals Time Frame for Short Term Goals: 4 visits Short Term Goal 1: Patient will demonstrate compliance with HEP to optimize therapy progress J2Ee Architect Goals Time Frame for Intermediate Goals : 8 visits Intermediate Goal 1: Patient will improve right ankle DF to 20 deg to allow gait without antalgia J2Ee Architect Goal 2: Patient will improve right ankle MMT to 5/5 in all planes to improve balance J2Ee Architect Goal 3: Patient will ascend/descend stairs x3 without rail J2Ee Architect Goal 4: Patient will improve LEFS score from 32/80 to 50/80 to demonstrate functional improvement Treatment Tolerance: Treatment Tolerance: Tolerated treatment well. Post Treatment Pain: 0/10 Time In: 1245 Time Out : 1330 Timed Code Treatment Minutes: 45 Minutes Total Treatment Time: 45 Minutes Ko Weston PT Date: 11/24/2024 documented in this encounter Plan of Treatment Upcoming Encounters Date Type Department Care Team (Late st Contact Info) Description 12/09/2024 2:15 PM EDT Appointment [facility] Physical Therapy [address] [place] [address] Ja Bright PTA MCR-Grade 3 Ankle Sprain-Bohach 12/13/2024 3:15 PM EDT Appointment [facility] Physical Therapy [address] [place] [address] Ja Bright PTA MCR-Grade 3 Ankle Sprain-Bohach 12/16/2024 1:45 PM EDT Appointment [facility] Physical Therapy [facility] [facility] [place] [address] Ko Weston, PT MCR-Grade 3 Ankle Sprain-Bohach documented as of this encounter Visit Diagnoses Not on filedocumented in this encounter Care Teams Pre Wave Assembler Relationship Specialty Start Date End Date Lucas Macedo MD [address] [place] [phone] PCP - General Family Medicine 11/22/24 documented as of this encounter
--- OUTSIDE RECORDS SUMMARY | 2024-11-29 14:15 | XMS_ITS | Encounter Summary ---
Author Organization [facility] Address [address], [address] [place] [address] Care Team Providers Care Continuous Loft Operator Name Role Phone Lucas Macedo MD Primary Care Provider [phone] Encounter Details Date Type Department Care Team (Latest Contact Info) Description 11/29/2024 2:15 PM EDT - 11/29/2024 11:59 PM EDT Hospital Encounter [facility] [address] [place], [place] [phone] Ja Bright PTA Discharge Disposition: Home or Self Care Social History Tobacco Use Types Packs/Day Years Used Date Smoking Tobacco: Never Assessed Comments Unknown Sex and Gender Information Value Date Recorded Sex Assigned at Not on file Legal Sex Female 2:05 PM EDT Gender Identity Not on file Sexual Orientation Not on file documented as of this encounter Progress Notes * Ja Bright PTA - 11/29/2024 2:15 PM EDT Images from the original note were not included. [facility] Outpatient Physical Therapy Daily Note Date: 11/29/2024 Patient Name: Amy Patterson : 1950 (73 y.o.) Referring Provider (secondary): Addi Diagnosis: Right Grade 3 ankle sprain Treatment Diagnosis: Right ankle pain Onset Date: 10/27/24 PT Insurance Information: Medicare Total # of Visits Approved: 8 Per Physician Order Total # of Visits to Date: 3 Plan of Care/Certification Expiration Date: 02/20/25 Pre-Treatment Pain: 03/19 Assessment Assessment: Patient states R ankle pain is a / this afternoon. Continued with ankle stability and ROM ex per flowsheet. Concluded session with manual as outlined. Post manual patient denies R ankle pain. Will continue to progress as able. Plan Continue with current plan of care Exercises/Modalities/Manual: See DocFlow Sheet Education: HEP Goals (Total # of Visits to Date: 3) Short Term Goals Time Frame for Short Term Goals: 4 visits Short Term Goal 1: Patient will demonstrate compliance with HEP to optimize therapy progress - MET Care Home Goals Time Frame for [place] Alarm Inspector Goals : 8 visits Care Home Goal 1: Patient will improve right ankle DF to 20 deg to allow gait without antalgia Care Home Goal 2: Patient will improve right ankle MMT to 5/5 in all planes to improve balance Care Home Goal 3: Patient will ascend/descend stairs x3 without rail Care Home Goal 4: Patient will improve LEFS score from 32/80 to 50/80 to demonstrate functional improvement Treatment Tolerance: Treatment Tolerance: Tolerated treatment well. Post Treatment Pain: 0/10 Time In: 1420 Time Out : 1500 Timed Code Treatment Minutes: 40 Minutes Total Treatment Time: 40 Minutes Ja Bright PTA Date: 11/29/2024 Cosigned by Ko Weston, PT at 11/29/2024 3:47 PM EDT documented in this encounter Plan of Treatment Upcoming Encounters Date Type Department Care Team (Late st Contact Info) Description 12/09/2024 2:15 PM EDT Appointment [facility] Physical Therapy [facility] [place] [address] Ja Bright PTA MCR-Grade 3 Ankle Sprain-Bohach 12/13/2024 3:15 PM EDT Appointment [facility] Physical Therapy [facility] [place] [address] Ja Bright PTA MCR-Grade 3 Ankle Sprain-Bohach 12/16/2024 1:45 PM EDT Appointment [facility] Physical Therapy [facility] [place] [address] Ko Weston, PT MCR-Grade 3 Ankle Sprain-Bohach documented as of this encounter Visit Diagnoses Not on filedocumented in this encounter Care Teams Continuous Loft Operator Relationship Specialty Start Date End Date Lucas Macedo MD [address] [place] [phone] PCP - General Family Medicine 11/22/24 documented as of this encounter
--- OUTSIDE RECORDS SUMMARY | 2024-12-02 14:45 | XMS_ITS | Encounter Summary ---
Author Organization [facility] Address [address], [address] [place] [address] Care Team Providers Care Tent Assembler Name Role Phone Lucas Macedo MD Primary Care Provider [phone] Encounter Details Date Type Department Care Team (Latest Contact Info) Description 12/02/2024 2:45 PM EDT - 12/02/2024 11:59 PM EDT Hospital Encounter [facility] Physical Therapy [address] [place], [place] [address] Ko Weston, PT Discharge Disposition: Home or [...] Progress Notes * Ko Weston, PT - 12/02/2024 2:45 PM EDT Images from the original note were not included. [facility] Outpatient Physical Therapy Daily Note Date: 12/02/2024 Patient Name: Amy Patterson : 1950 (73 y.o.) Referring Provider (secondary): Addi Diagnosis: Right Grade 3 ankle sprain Treatment Diagnosis: Right ankle pain Onset Date: 10/27/24 PT Insurance Information: Medicare Total # of Visits Approved: 8 Per Physician Order Total # of Visits to Date: 4 Plan of Care/Certification Expiration Date: 02/20/25 Pre-Treatment Pain: 0/10 Subjective: 1445: Doing well. Denies pain today and after last session. Assessment Assessment: Minor soreness after session. PROM DF to 18 deg, PF to 55 deg. Will start working on gait mechanics at next visit. Plan Continue with current plan of care Exercises/Modalities/Manual: See DocFlow Sheet Education: Education on progressions Goals (Total # of Visits to Date: 4) Short Term Goals Time Frame for Short Term Goals: 4 visits Short Term Goal 1: Patient will demonstrate compliance with HEP to optimize therapy progress - MET STG Goal 1 Status:: Met Stair Builder Goals Time Frame for Retirement Goals : 8 visits Retirement Goal 1: Patient will improve right ankle DF to 20 deg to allow gait without antalgia Retirement Goal 2: Patient will improve right ankle MMT to 5/5 in all planes to improve balance Retirement Goal 3: Patient will ascend/descend stairs x3 without rail Stair Builder Goal 4: Patient will improve LEFS score from 32/80 to 50/80 to demonstrate functional improvement Treatment Tolerance: Treatment Tolerance: Tolerated treatment well. Post Treatment Pain: 110 Time In: 1445 Time Out : 1532 Timed Code Treatment Minutes: 47 Minutes Total Treatment Time: 47 Minutes Ko Weston PT Date: 12/02/2024 documented in this encounter Plan of Treatment Upcoming Encounters Date Type Department Care Team (Late st Contact Info) Description 12/09/2024 2:15 PM EDT Appointment [facility] Physical Therapy [facility] [place] [address] Ja Bright PTA MCR-Grade 3 Ankle Sprain-Bohach 12/13/2024 3:15 PM EDT Appointment [facility] Physical Therapy [facility] [place] [address] Ja Bright PTA MCR-Grade 3 Ankle Sprain-Bohach 12/16/2024 1:45 PM EDT Appointment [facility] Physical Therapy [address] [place], [place] [address] [address] Ko Weston, PT MCR-Grade 3 Ankle Sprain-Bohach documented as of this encounter Visit Diagnoses Not on filedocumented in this encounter Care Teams Tent Assembler Relationship Specialty Start Date End Date Lucas Macedo MD [address] [place] [phone] PCP - General Family Medicine 11/22/24 documented as of this encounter
--- OUTSIDE RECORDS SUMMARY | 2024-12-06 14:30 | XMS_ITS | Encounter Summary ---
Author Organization [facility] Address [address], [address] [place] [address] Care Team Providers Care Cnc Lathe Machine Operator Name Role Phone Lucas Macedo MD Primary Care Provider [phone] Encounter Details Date Type Department Care Team (Latest Contact Info) Description 12/06/2024 2:30 PM EDT - 12/06/2024 11:59 PM EDT Hospital Encounter [facility] Physical Therapy [address], [place] [id number] Ja Bright PTA Arrived Discharge Disposition: Home or Self Care Social History Tobacco Use Types Packs/Day Years Used Date Smoking Tobacco: Never Assessed Comments Unknown Sex and Gender Information Value Date Recorded Sex Assigned at Not on file Legal Sex Female 2:05 PM EDT Gender Identity Not on file Sexual Orientation Not on file documented as of this encounter Progress Notes * Ja Bright PTA - 12/06/2024 2:30 PM EDT Images from the original note were not included. [facility] Outpatient Physical Therapy Daily Note Date: 12/06/2024 Patient Name: Amy Patterson : 1950 (73 y.o.) Referring Provider (secondary): Addi Diagnosis: Right Grade 3 ankle sprain Treatment Diagnosis: Right ankle pain Onset Date: 10/27/24 PT Insurance Information: Medicare Total # of Visits Approved: 8 Per Physician Order Total # of Visits to Date: 5 Plan of Care/Certification Expiration Date: 02/20/25 Pre-Treatment Pain: 0/10 Assessment Assessment: Patient denies R ankle pain this afternoon. Continued with ankle stability and LE strengthening ex per flowsheet. Added shuttle and single leg treadmill with good tolerance from patient. At end of session patient also asked to try elliptical x2 min. Patient was able to complete without issue, but did require box #2 to assist getting to foot pedal. Post session patient denies R ankle pain. Will continue to progress as able. Plan Continue with current plan of care Exercises/Modalities/Manual: See DocFlow Sheet Education: HEP Goals (Total # of Visits to Date: 5) Short Term Goals Time Frame for Short Term Goals: 4 visits Short Term Goal 1: Patient will demonstrate compliance with HEP to optimize therapy progress - MET STG Goal 1 Status:: Met Senior Court Office Assistant Goals Time Frame for Senior Court Office Assistant Goals : [address] Office Assistant Goal 1: Patient will improve right ankle DF to 20 deg to allow gait without antalgia Care Home Goal 2: Patient will improve right ankle MMT to 5/5 in all planes to improve balance Care Home Goal 3: Patient will ascend/descend stairs x3 without rail Senior Court Office Assistant Goal 4: Patient will improve LEFS score from 32/80 to 50/80 to demonstrate functional improvement Treatment Tolerance: Treatment Tolerance: Tolerated treatment well. Post Treatment Pain: 0/10 Time In: 1435 Time Out : 1515 Timed Code Treatment Minutes: 40 Minutes Total Treatment Time: 40 Minutes Ja Bright PTA Date: 12/06/2024 Cosigned by Ko Weston, PT at 12/07/2024 8:20 AM EDT documented in this encounter Plan of Treatment Upcoming Encounters Date Type Department Care Team (Late st Contact Info) Description 12/09/2024 2:15 PM EDT Appointment [facility] Physical Therapy [address] [place] [address] Ja Bright PTA MCR-Grade 3 Ankle Sprain-Bohach 12/13/2024 3:15 PM EDT Appointment [facility] Physical Therapy [address] [place] [address] Ja Bright PTA MCR-Grade 3 Ankle Sprain-Bohach 12/16/2024 1:45 PM EDT Appointment [facility] [address] [place] [address] Ko Weston PT MCR-Grade 3 Ankle Sprain-Addi documented as of this encounter Visit Diagnoses Not on filedocumented in this encounter Care Teams Cnc Lathe Machine Operator Relationship Specialty Start Date End Date Lucas Macedo MD [address] [place] [phone] PCP - General Family Medicine 11/22/24 documented as of this encounter
--- OUTSIDE RECORDS SUMMARY | 2024-12-07 13:30 | XMS_ITS | Encounter Summary ---
Author Organization [facility] Address [address] [place] [address] Care Team Providers Care Software Systems Engineer Name Role Phone Lucas Macedo MD Primary Care Provider [phone] Reason for Visit * Reason Comments Follow-up RT ankle sprain Encounter Details Date Type Department Care Team (Late Contact Info) Description 12/07/2024 1:30 PM EDT Office Visit [facility] [address] [place] [phone] Demetrius Fontana, DPIrineo [address] [place] [address] Social History Tobacco Use Types Packs/Day Years Used Date Smoking Tobacco: Never Smokeless Tobacco: Never Alcohol Use Standard Drinks/Week Comments Never 0 (1 standard drink = 0.6 oz pur e alcohol) Comments Unknown Sex and Gender Information Value Date Recorded Sex Assigned at Not on file Legal Sex Female 8:33 PM EDT Gender Identity Not on file Sexual Orientation Not on file documented as of this encounter Last Filed Vital Signs Vital Sign Reading Time Taken Comments Blood Pressure 150/89 12/07/2024 1:26 PM EDT Pulse 60 12/07/2024 1:26 PM EDT Temperature - - Respiratory Rate - - Oxygen Saturation - - Inhaled Oxygen Concentration - - Weight 87.5 kg (193 lb) 12/07/2024 1:26 PM EDT Height 162.6 cm (5' 4 ) 12/07/2024 1:26 PM EDT Body Mass Index 33.13 12/07/2024 1:26 PM EDT documented in this encounter Plan of Treatment Upcoming Encounters Date Type Department Care Team (Late st Contact Info) Description 12/28/2024 2:00 PM EDT Office Visit [facility] [address] [place] [phone] Demetrius Fontana, DPIrineo [address] [place] [address] documented as of this encounter Visit Diagnoses Not on filedocumented in this encounter Care Teams Software Systems Engineer Relationship Specialty Start Date End Date Lucas Macedo MD [address] [place] [phone] PCP - General Family Medicine 11/02/24 documented as of this encounter
--- OUTSIDE RECORDS SUMMARY | 2024-12-08 13:59 | XMS_ITS | Encounter Summary ---
Author Organization [facility] Address [address] [place] [address] Care Team Providers Care Tongue Presser Name Role Phone Lucas Macedo MD Primary Care Provider [phone] Encounter Details Date Type Department Care Team (Late Contact Info) Description 12/07/2024 Bamboo flowsheet [facility] [address] [place] [address] Demetrius Fontana DPM [address] [place] [address] Social History Tobacco Use Types Packs/Day Years [...] on file documented as of this encounter Plan of Treatment Upcoming Encounters Date Type Department Care Team (Late st Contact Info) Description 12/28/2024 2:00 PM EDT Office Visit [facility] [address] [place] [phone] Demetrius Fontana DPM [address] [place] [address] documented as of this encounter Visit Diagnoses Not on filedocumented in this encounter Care Teams Tongue Presser Relationship Specialty Start Date End Date Lucas Macedo MD [address] [place] [address] PCP - General Family Medicine 11/02/24 documented as of this encounter
--- OUTSIDE RECORDS SUMMARY | 2024-12-08 13:59 | XMS_ITS | Clinical Summary ---
Author Organization [facility] Address [address], [address] [place] [address] Care Team Providers Care Fur Trimming Machine Operator Name Role Phone Lucas Macedo MD Primary Care Provider [phone] Encounters Date Type Department Care Team Description 12/06/2024 2:30 PM EDT - 12/06/2024 11:59 PM EDT Hospital Encounter [facility] [address] [facility] [place] [address] Ja Bright PTA Arrived Discharge Disposition: Home or Self Care 12/02/2024 2:45 PM EDT - 12/02/2024 11:59 PM EDT Hospital Encounter [facility] [address] [place] [address] Ko Weston, PT Discharge Disposition: Home or Self Care 11/29/2024 2:15 PM EDT - 11/29/2024 11:59 PM EDT Hospital Encounter [facility] [address] [facility] [place] [address] Ja Bright PTA Discharge Disposition: Home or Self Care 11/24/2024 12:45 PM EDT - 11/24/2024 11:59 PM EDT Hospital Encounter [facility] [address] [place] [address] Ko Weston, PT Discharge Disposition: Home or Self Care 11/22/2024 2:45 PM EDT - 11/22/2024 11:59 PM EDT Hospital Encounter [facility] [address] [facility] [place] [address] Ko Weston, PT Discharge Disposition: Home or Self Care from Last 3 Months Social History Tobacco Use Types Packs/Day Years Used Date Smoking Tobacco: Never Assessed Comments Unknown Sex and Gender Information Value Date Recorded Sex Assigned at Not on file Legal Sex Female 2:05 PM EDT Gender Identity Not on file Sexual Orientation Not on file Plan of Treatment Upcoming Encounters Date Type Department Care Team (Late st Contact Info) Description 12/09/2024 2:15 PM EDT Appointment [facility] Physical Therapy [address] [place] [address] Ja Bright PTA MCR-Grade 3 Ankle Sprain-Bohach 12/13/2024 3:15 PM EDT Appointment [facility] Physical Therapy [address] [place] [address] Ja Bright PTA MCR-Grade 3 Ankle Sprain-Bohach 12/16/2024 1:45 PM EDT Appointment [facility] Physical Therapy [address] [place] [address] Ko Weston, PT MCR-Grade 3 Ankle Sprain-[facility] Health Maintenance Due Date Last Done Comments Depression Screen 1961 Hepatitis C screen 12/18/1967 Breast cancer screen 1989 Lipids 1989 Colonoscopy 1994 Colorectal Cancer Screen 1994 FIT/FOBT: Average risk 1994 Fecal-DNA (Cologuard): [place] ge risk 1994 Sigmoidoscopy/CT colonography 1994 Pneumococcal 50+ years Vacci ne (1 of 1 - PCV) 12/18/1999 DEXA (modify frequency per FRAX score) 2004 Flu vaccine (#1) 10/08/2024 COVID-19 Vaccine (3 - 2024-2 6 season) 2024 10/24/2020, 10/03/2020 Annual Wellness Visit (Medicare) 11/16/2024 Respiratory Syncytial Virus (RSV) or age 60 yrs+ (1 - 1-dose 75+ series) 2024 DTaP/Tdap/Td vaccine (2 - Td or Tdap) 11/01/2034 11/01/2024 Shingles vaccine Completed 05/10/2021, 12/21/2020 Hepatitis A vaccine Aged Out No longe r eligible based on patient's age to complete this topic Hepatitis B vaccine Aged Out No longe r eligible based on patient's age to complete this topic Hib vaccine Aged Out No longer eligi ble based on patient's age to complete this topic Meningococcal (ACWY) vaccine Aged Out No longer eligible based on patient's age to complete this topic Meningococcal B vaccine Aged Out No l onger eligible based on patient's age to complete this topic Polio vaccine Aged Out No longer elig ible based on patient's age to complete this topic Insurance MEDICARE Member Subscriber Plan / Payer (Ef fective 2015-Present) Name:Amy Patterson Relation to Subscriber:Self Name:Amy Patterson Payer ID:Not on file Group ID:Not on file Type:Not on file Address: [address] [place] [id number] Care Teams Fur Trimming Machine Operator Relationship Specialty Start Date End Date Lucas Macedo MD [address] [place] [phone] PCP - General Family Medicine 11/22/24
--- OUTSIDE RECORDS SUMMARY | 2024-12-08 13:59 | XMS_ITS | Clinical Summary ---
Author Organization [facility] Address [address] [place] [address] Care Team Providers Care Marine Pipefitter Helper Name Role Phone Lucas Macedo MD Unavailable [phone] Allergies Active Allergy Reactions Criticality Noted Date Comments Doxycycline 07/03/2006 Erythromycin 07/03/2006 Penicillins 07/03/2006 Medications COMPOUNDED PRESCRIPTION barley green tid 0 07/03/2006 Active COMPOUNDED PRESCRIPTION carrot juice 0 07/03/2006 Active Active Problems Problem Noted Date Diagnosed Date Malignant neoplasm of uterus, part unspecified 0 07/03/2006 Encounters Date Type Department Care Team Description 09/08/2024 Travel from Last 3 Months Family History Medical History Relation Comments Coronary Artery Disease Father Stroke Father Cancer Mother colon Diabetes Mother Thyroid Mother Relation Status Comments Father Mother Social History Tobacco Use Types Packs/Day Years Used Date Smoking Tobacco: Former Comments:quit age 31 - 1 ppd x 16 years Alcohol Use Standard Drinks/Week Comments Yes 0 (1 standard drink = 0.6 oz pur e alcohol) [facility] Area Deprivation Index Answer Date Wally rded National Score (1-100), lower number is lower ri sk 65 09/09/2024 State Score (1-10), lower number is lower risk 4 09/09/2024 Data from: https://www.neighborhoodatlas.medicine.[facility].edu/. Last address used for calculation [address] [place] [address] 09/09/2024 Comments No Sex and Gender Information Value Date Recorded Sex Assigned at Not on file Legal Sex Female 8:07 AM EST Gender Identity Not on file Sexual Orientation Not on file Last Filed Vital Signs Vital Sign Reading Time Taken Comments Blood Pressure 84/63 07/03/2006 4:13 PM EDT Pulse 79 07/03/2006 4:13 PM EDT Temperature 36.2 C (97.2 F) 07/03/2006 4:13 PM EDT Respiratory Rate - - Oxygen Saturation - - Inhaled Oxygen Concentration - - Weight 81.2 kg (179 lb) 07/03/2006 4:13 PM EDT Height - - Body Mass Index - - Plan of Treatment Health Maintenance Due Date Last Done Comments Anxiety Screening 12/18/1967 Depression Screening 12/18/1967 Hepatitis C Screening 12/18/1967 DTaP,Tdap,Td Vaccine (1 - Tdap) [address] Colonography 1994 Cologuard (FIT-DNA) 1994 Diabetes Screening 1994 Fecal Occult Blood 1994 Lipid Screening 1994 Sigmoidoscopy 1994 Pneumococcal Vaccine: 50+ (1 of 1 - PCV) 12/18/1999 Shingrix Vaccine (1 of 2) 12/18/1999 Bone Density Screening 2014 Colonoscopy 05/14/2023 05/13/2022 Colorectal Cancer Screening 05/14/2023 Advance Directive Discussion 03/10/2024 Influenza Vaccine (#1) 2024 RSV Vaccine (1 - 1-dose 75+ series) 2024 Insurance MEDICARE [facility] Care Teams Marine Pipefitter Helper Relationship Specialty Start Date End Date Lucas Macedo MD [address] [place] [address] Referring Family Medicine 03/11/24
--- OUTSIDE RECORDS SUMMARY | 2024-12-08 13:59 | XMS_ITS | Encounter Summary ---
Author Organization [facility] Address [address] [place] [address] Care Team Providers Care Diazo Technician Name Role Phone Pcp, Rosalba Primary Care Provider Lucas Liu MD Unavailable [phone] Source Comments In the event this information is protected by the Federal Confidentiality of Alcohol and Drug AbusePatient Records regulations: The Federal rules restrict any use of the information to criminally investigate or prosecute any alcohol or drug abuse patient.[facility] Encounter Details Date Type Department Care Team (Latest Contact Info) Description 07/02/2006 Prob Sum Review Provider, Cc Social History Tobacco Use Types Packs/Day Years Used Date Smoking Tobacco: Never Assessed Comments Unknown Sex and Gender Information Value Date Recorded Sex Assigned at Not on file Legal Sex Female 8:07 AM EST Gender Identity Not on file Sexual Orientation Not on file documented as of this encounter Plan of Treatment Not on file documented as of this encounter Visit Diagnoses Not on filedocumented in this encounter Care Teams Diazo Technician Relationship Specialty Start Date End Date PcpRosalba PCP - General 05/16/06 11/08/07 Lucas Macedo MD [address] [place] [phone] Referring Family Medicine 03/11/24 documented as of this encounter
--- OUTSIDE RECORDS SUMMARY | 2024-12-08 13:59 | XMS_ITS | Clinical Summary ---
Author Organization [facility] Address [address] [place] [address] Care Team Providers Care Lead Refinery Supervisor Name Role Phone Lucas Macedo MD Primary Care Provider [phone] Allergies Active Allergy Reactions Criticality Noted Date Comments Doxycycline 07/03/2006 Erythromycin GI intolerance 07/03/2006 Penicillins 07/03/2006 Other Reaction(s): Other (See Comments) uncontrollable symptoms-pt will explain Medications pantoprazole (ProtoNix) 40 MG EC tablet Take 40 mg by mouth at bedtime 07/11/2023 Active Active Problems Problem Noted Date Diagnosed Date ZEYAD (obstructive sleep apnea) 08/20/2023 Snoring 08/20/2023 Daytime hypersomnolence 08/20/2023 Hypertension 08/20/2023 Gastroesophageal reflux disease 08/20/2023 Encounters Date Type Department Care Team Description 12/07/2024 1:30 PM EDT Office Visit [facility] [address] [place] [address] Demetrius Fontana DPM 12/07/2024 Bamboo flowsheet [facility] [address] [place] [address] Demetrius Fontana DPM 12/07/2024 Travel 11/16/2024 12:15 PM EDT Office Visit [facility] [address] [place] [address] Demetrius Fontana DPM Grade 3 ankle sprain (Primary Dx); Acute right ankle pain 11/16/2024 Bamboo flowsheet [facility] [address] [place] [address] Demetrius Fontana DPM 11/16/2024 Travel 11/02/2024 9:05 AM EDT Ancillary Procedure [facility] [address] [place] [address] 11/02/2024 9:00 AM EDT [facility] [address] [facility] [place] [address] Demetrius Fontana, TIFFANY Grade 3 ankle sprain (Primary Dx); Acute right ankle pain 11/02/2024 Bamboo flowsheet [facility] [address] [facility] [place] [address] Demetrius Fontana DPM 11/02/2024 Travel from Last 3 Months Family History Medical History Relation Name Comments Heart failure Father Kidney failure Mother Relation Name Status Comments Father Mother Social History Tobacco Use Types Packs/Day Years Used Date Smoking Tobacco: Never Smokeless Tobacco: Never Tobacco Cessation:Counseling Given: Not Answered Alcohol Use Standard Drinks/Week Comments Never 0 [...] - Respiratory Rate - - Oxygen Saturation 94% 08/20/2023 12:34 PM EDT Inhaled Oxygen Concentration - - Weight 87.5 kg (193 lb) 12/07/2024 1:26 PM EDT Height 162.6 cm (5' 4 ) 12/07/2024 1:26 PM EDT Body Mass Index 33.13 12/07/2024 1:26 PM EDT Plan of Treatment Upcoming Encounters Date Type Department Care Team (Late st Contact Info) Description 12/28/2024 2:00 PM EDT Office Visit [facility] [address] [place] [address] Demetrius Fontana DPM [address] [place] [address] Health Maintenance Due Date Last Done Comments CT Colonography 1950 FIT-DNA 1949 FIT 1950 FOBT 1950 Sigmoidoscopy 1950 Mammogram 1989 Pneumococcal Vaccine: 65+ Years (1 of 1 - PCV) 000 Influenza Vaccine (#1) 2024 Colonoscopy 05/13/2032 05/13/2022 Colorectal Cancer Screening 05/13/2032 Procedures Procedure Name Priority Date/Time Associated Diagnosis Comments XR ANKLE 2 VIEWS RIGHT Routine 11/02/2024 9:00 AM EDT Acute right ankle pain from Last 3 Months Results * XR ankle 2 views right (11/02/2024 9:00 AM EDT) Anatomical Region Laterality Modality Lower Extremities, Ankle Right Radiogr aphic Imaging Narrative 11/02/2024 2:40 PM EDT Imaging Result: XRAY RIGHT ANKLE: AP/LAT- No fx, dist fib with calcification and ant ankle(tib/talar joint) with TN,STJ both facets decr space and marginal osteophytes us Demetrius Fontana DPM IMG XR PROCEDURES Final Result from Last 3 Months Insurance MEDICARE [facility] Care Teams Lead Refinery Supervisor Relationship Specialty Start Date End Date Lucas Macedo MD [address] [place] [address] PCP - General Family Medicine 11/02/24
--- OUTSIDE RECORDS SUMMARY | 2024-12-08 13:59 | XMS_ITS | Encounter Summary ---
Author Organization [facility] Address [address] [place] [address] Care Team Providers Care Atlassian Administrator Name Role Phone Lucas Macedo MD Primary Care Provider [phone] Encounter Details Date Type Department Care Team (Latest Contact Info) Description 12/07/2024 Travel Social History Tobacco Use Types Packs/Day Years [...] Office Visit [facility] [address] [place] [phone] Demetrius Fontana DPIrineo [address] [place] [address] documented as of this encounter Visit Diagnoses Not on filedocumented in this encounter Care Teams Atlassian Administrator Relationship Specialty Start Date End Date Lucas Macedo MD [address] [place] [phone] PCP - General Family Medicine 11/02/24 documented as of this encounter
== END 2024-12-08 13:58 | disposition home or self-care (01) ==
LOC: SLEEP 13:57
PROVIDERS: PCP Family Medicine; Visit Provider Psychiatry & Neurology Neurology
DX: G47.33 Obstructive sleep apnea (adult) (pediatric) (principal)

== ENCOUNTER 2025-01-12 14:30 | Outpatient (OUT) | payer MEDICARE, OTHER, SELFPAY ==
--- OUTSIDE RECORDS SUMMARY | 2025-01-11 13:45 | XMS_ITS | Encounter Summary ---
Author Organization [facility] Address [address] [place] [address] Care Team Providers Care Drapery Rod Assembler Name Role Phone Lucas Macedo MD Primary Care Provider [phone] Reason for Visit * ReasonCommentsFollow-upRT ankle sprain Encounter Details DateTypeDepartmentCare Team (Latest Contact Info)Gblzhoyiynh77/04/2025 1:45 PM ESTOffice Visit [facility] [address] [place] [address] Demetrius Fontana, DPIrineo [address] [place] [address] Social History Tobacco UseTypesPacks/DayYears UsedDateSmoking Tobacco: NeverSmokeless Tobacco: NeverAlcohol UseStandard Drinks/WeekCommentsNever0 (1 standard drink = 0.6 oz pure alcohol)CommentsUnknownSex and Gender InformationValueDate Recorded Sex Assigned at BirthNot on fileLegal EhvEzbmwb24/01/2023 8:33 PM EDTGender IdentityNot on fileSexual OrientationNot on filedocumented as of this encounter Last Filed Vital Signs Vital SignReadingTime TakenCommentsBlood Vxdwmped875/8611 1:50 PM EST Acstm403301/11/2025 1:50 PM ESTTemperature--Respiratory Rate--Oxygen Saturation-- Inhaled Oxygen Concentration--Vtqnbf99.5 kg (193 lb)01/11/2025 1:50 PM ESTHeight 162.6 cm (5' 4 )01/11/2025 1:50 PM ESTBody Mass Index33.13103/13/2024 1:50 PM EST documented in this encounter Plan of Treatment Not on file documented as of this encounter Visit Diagnoses Not on filedocumented in this encounter Care Teams Team MemberRelationshipSpecialtyStart DateEnd Date Lucas Macedo MD [address] [place] [phone] PCP - GeneralFamily Medicine11/02/24documented as of this encounter
--- OUTSIDE RECORDS SUMMARY | 2025-01-12 14:35 | XMS_ITS | Encounter Summary ---
Author Organization [facility] Address [address] [place] [address] Care Team Providers Care Ethylbenzene Cracking Supervisor Name Role Phone Lucas Macedo MD Primary Care Provider [phone] Encounter Details DateTypeDepartmentCare Team (Latest Contact Info)Pekxhapltxv89/04/2025amboo flowsheet [facility] [address] [place] [address] Demetrius Fontana, DPM [address] [place] [address] Social History Tobacco UseTypesPacks/DayYears UsedDateSmoking Tobacco: NeverSmokeless Tobacco: NeverAlcohol UseStandard Drinks/WeekCommentsNever0 (1 standard drink = 0.6 oz pure alcohol)CommentsUnknownSex and Gender InformationValueDate Recorded Sex Assigned at BirthNot on fileLegal SozIjxxfm52/01/2023 8:33 PM EDTGender IdentityNot on fileSexual OrientationNot on filedocumented as of this encounter Plan of Treatment Not on file documented as of this encounter Visit Diagnoses Not on filedocumented in this encounter Care Teams Team MemberRelationshipSpecialtyStart DateEnd Date Lucas Macedo MD [address] [place] [address] PCP - GeneralFamily Medicine11/02/24documented as of this encounter
--- OUTSIDE RECORDS SUMMARY | 2025-01-12 14:35 | XMS_ITS | Clinical Summary ---
Author Organization [facility] Address [address] [place] [address] Care Team Providers Care Interior Decorator Name Role Phone Lucas Macedo MD Unavailable [phone] Allergies Active AllergyReactionsCriticalityNoted RneqJtwkhbdeVileifbctcw28/26/2007 Owrdnspebdrj40/26/8339Rxsjaqqiqbu67/26/2007 Medications MedicationSigDispense QuantityRefillsLast FilledStart DateEnd DateStatus COMPOUNDED PRESCRIPTION barley green yox673ctive COMPOUNDED PRESCRIPTION carrot nqzzu461ctive Active Problems ProblemNoted DateDiagnosed DateMalignant neoplasm of uterus, part unspecified 07/03/2006 Family History Medical HistoryRelationCommentsCoronary Artery DiseaseFatherStrokeFatherCancer MothercolonDiabetesMotherThyroidMotherRelationStatusCommentsFatherMother Social History Tobacco UseTypesPacks/DayYears UsedDateSmoking Tobacco: Former Comments:quit age 31 - 1 ppd x 16 years Alcohol UseStandard Drinks/WeekCommentsYes0 (1 standard drink = 0.6 oz pure alcohol)rareArea Deprivation IndexAnswerDate RecordedNational Score (1-100), lower number is lower pbmp821209/09/2024State Score (1-10), lower number is lower lbuj241Data from: https://www.neighborhoodatlas.medicine.[facility].edu/. Last address used for lhgnqbvahmg24 [facility]09/09/2024CommentsNoSex and Gender InformationValueDate RecordedSex Assigned at BirthNot on fileLegal Sex Bzcqan5902/09/2012 8:07 AM ESTGender IdentityNot on fileSexual OrientationNot on file Last Filed Vital Signs Vital SignReadingTime TakenCommentsBlood Mcnjysyb32/6304 4:13 PM EDT Kezuc443707/03/2006 4:13 PM UMDUdnnzvrdhcg05.2 ??C (97.2 ??F)07/03/2006 4:13 PM EDTRespiratory Rate--Oxygen Saturation--Inhaled Oxygen Concentration--Gwtdtd31.2 kg (179 lb)07/03/2006 4:13 PM EDTHeight--Body Mass Index-- Plan of Treatment Health MaintenanceDue DateLast DoneCommentsAnxiety Hxqisjomg36/10/1968Depression Lsioqsagd82/10/1968Hepatitis C Bbnwzaevi76/10/1968DTaP,Tdap,Td Vaccine (1 - Tdap)1968Mammogram Yeewoepaq14/10/1990CT Qonswwenokbe85/10/1995Cologuard (FIT-DNA)1994Diabetes Pjbcqnjzj30/10/1995Fecal Occult Blood1994Lipid Dkdqnqdcl75/10/8068Jywtmxehwnhmh44/10/1995Pneumococcal Vaccine: 50+ (1 of 1 - PCV)12/18/1999Shingrix Vaccine (1 of 2)12/18/1999Bone Density Screening 12/17/20149591Ltjoujllxup40/06/202403/3Colorectal Cancer Panrsmfab27/06/2024 Advance Directive Sorexhpjgo08/01/2025ovid-19 Vaccine (1 - season) 2024Influenza Vaccine (#1)2024RSV Vaccine (1 - 1-dose 75+ series) [address] [place] [id number] Care Teams Team MemberRelationshipSpecialtyStart DateEnd Lucas Macedo MD [address] [place] [address] [facility]03/11/24
--- OUTSIDE RECORDS SUMMARY | 2025-01-12 14:35 | XMS_ITS | Clinical Summary ---
Author Organization [facility] Address [address] [place] [address], [address] [place] [address] Care Team Providers Care Natural Resource Specialist Name Role Phone Lucas Macedo MD Primary Care Provider [phone] Encounters DateTypeDepartmentCare EwsnUslpyxztfio53/06/2025 3:14 PM EDT - 12/13/2024 11:59 PM EDTHospital Encounter [facility] [address] [facility] [place] [address] Ja Bright PTA Discharge Disposition: Home or Self Care12/09/2024 2:15 PM EDT - 12/09/2024 11:59 PM EDTHospital Encounter [facility] [address] [facility] [place] [address] Ja Bright PTA Discharge Disposition: Home or Self Care12/06/2024 2:30 PM EDT - 12/06/2024 11:59 PM EDTHospital Encounter [facility] [address] [facility] [place] [address] Ja Bright PTA Discharge Disposition: Home or Self Care12/02/2024 2:45 PM EDT - 12/02/2024 11:59 PM EDTHospital Encounter [facility] [address] [place] [address] Ko Weston PT Discharge Disposition: Home or Self Care11/29/2024 2:15 PM EDT - 11/29/2024 11:59 PM EDTHospital Encounter [facility] [address] [place] [place] [address] Ja Bright PTA Discharge Disposition: Home or Self Care11/24/2024 12:45 PM EDT - 11/24/2024 11:59 PM EDTHospital Encounter [facility] [address] [place] [address] Ko Weston, PT Discharge Disposition: Home or Self Care11/22/2024 2:45 PM EDT - 11/22/2024 11:59 PM EDTHospital Encounter [facility] [address] [place] [address] Ko Weston, MOSES Discharge Disposition: Home or Self Carefrom Last 3 Months Social History Tobacco UseTypesPacks/DayYears UsedDateSmoking Tobacco: Never Assessed CommentsUnknownSex and Gender InformationValueDate RecordedSex Assigned at Not on fileLegal HmhEvivwe64/09/2025 2:05 PM EDTGender IdentityNot on fileSexual OrientationNot on file Plan of Treatment Health MaintenanceDue DateLast DoneCommentsDepression Ldpabu1512/17/1961Hepatitis C ytrxac7012/18/19677572Dkyjyl55/10/9504Cnosznobddi48/10/1995Colorectal Cancer Screen 1994FIT/FOBT: Average risk1994Fecal-DNA (Cologuard): Average risk 1994Sigmoidoscopy/CT /10/1995Pneumococcal 50+ years Vaccine (1 of 1 - PCV)12/18/1999DEXA (modify frequency per FRAX score)2004Flu vaccine (#1)10/08/2024OVID-19 Vaccine ( - season), 10/03/2020nnual Wellness Visit (Medicare)11/16/2024Respiratory Syncytial Virus (RSV) or age 60 yrs+ (1 - 1-dose 75+ series)2024DTaP/Tdap/Td vaccine (2 - Td or Tdap)Shingles ebwnnieJacknyarw80/03/2022, 12/21/2020Hepatitis A vaccineAged OutNo longer eligible based on patient's age to complete this topicHepatitis B vaccineAged OutNo longer eligible based on patient's age to complete this topicHib vaccineAged OutNo longer eligible based on patient's age to complete this topicMeningococcal (ACWY) vaccineAged OutNo longer eligible based on patient's age to complete this topicMeningococcal B vaccineAged OutNo longer eligible based on patient's age to complete this topic Polio vaccineAged OutNo longer eligible based on patient's age to complete this topic Insurance Care Teams Team MemberRelationshipSpecialtyStart Date Lucas Macedo MD [address] [place] [phone] PCP - GeneralFamily Medicine11/22/24
--- OUTSIDE RECORDS SUMMARY | 2025-01-12 14:35 | XMS_ITS | Patient Health Record ---
Author Organization [facility] [place] Address [address] [place] [address] Care Team Providers Care Leak Detection Engineer Name Role Phone Shamar Logan Primary Care Provider [phone] Allergies Allergen (clinical drug ingredient) Drug/Non Drug Allergy documented on EMR Reaction Allergy Type Onset Date Status doxycycline Doxycycline vomiting Drug Allergy ActiveerythromycinErythromycinnausea and vomitingDrug AllergyActivePenicillin anaphylaxisDrug AllergyActive Results Component Value Reference Range Notes GLYCOHEMOGLOBIN A1C Reviewed date:04/05/2024 08:21:55 PM Interpretation: Performing Lab: Notes/Report: [facility] , Glycohemoglobin A1C 5.7 4.5-6.2 % ADA THERAPEUTIC TARGET < 7.0 > 7.0 ACTION SUGGESTED ADA RECOMMENDED LIMIT 4.0 - 6.0 Estimated Average Glucose 117 Performing Lab:see noteML - [facility] LBCBC AUTO DIFF Reviewed date:04/05/2024 08:21:55 PM Interpretation: Performing Lab: Notes/Report: [facility] ,White Blood Count4.74.0-11.0 10 3/uLRed Blood Count4.544.20-5.40 10 6/uL Wjqqrnhloh38.612.0-16.0 g/mUWzzwbcdbbr14.336.0-48.0 %Mean Corpuscular Cmmjrb82.2 81.0-99.0 fLMean Corpuscular Swykapaqgm09.026.7-34.0 pgMean Corpuscular HGB Conc 32.229.9-35.2 g/dLRed Cell Distribution Width12.711.0-15.0 %Platelet Nkmkz060 150-450 10 3/uLMean Platelet Rnrsom66.99.5-13.5 fLNeutrophils Percent Auto62.2 43.0-75.0 %Lymphocytes Percent Auto23.620.5-60.0 %Monocytes Percent Auto10.11.7- 12.0 %Eosinophils Percent Auto2.80.9-7.0 %Basophils Percent Auto0.90.2-2.0 % Immature Granulocytes Pct Auto0.40.0-0.5 %Neutrophils Absolute Auto2.91.4-6.5 10 3/uLLymphocytes Absolute Auto1.11.2-3.8 10 3/uLMonocytes Absolute Auto0.50.3-0.8 10 3/uLEosinophils Absolute Auto0.10.0-0.7 10 3/uLBasophils Absolute Auto0.00.0- 0.1 10 3/uLImmature Granulocytes Abs Auto0.020.00-0.03 10 3/uLPerforming Lab:see noteML - [facility] LBFREE T3 Reviewed date:04/05/2024 08:21:55 PM Interpretation: Performing Lab: Notes/Report: [facility] ,Free T32.432.18-3.98 pg/mLPerforming Lab:see noteML - [facility] LB LIPID PROFILE Reviewed date:04/05/2024 08:21:55 PM Interpretation: Performing Lab: Notes/Report: [facility] ,Pkyjlwswcbgst062<=150 mg/bTTqcamjbmwwb272<=200 mg/dLHDL Mumfjlxabvv4106-47 mg/dL > or =60 mg/dl - LOW CARDIOVASCULAR RISK <40 mg/dl - HIGH CARDIOVASCULAR RISK LDL Cholesterol Evqumhjyvo394.0 <100 mg/dl OPTIMAL 160-189 mg/dl HIGH 130-159 mg/dl BORDERLINE HIGH >190 mg/dl VERY HIGH 100-129 mg/dl NEAR OR ABOVE OPTIMAL VLDL VVEDLASGVXW06.2Chol HDL Ratio3.0 >11.0 HIGH RISK 4.4 - 7.1 AVERAGE RISK 3.3 - 4.4 LOW RISK 7.1 - 11.0 MODERATE RISK Performing Lab:see noteML - [facility] LBPROF 14(COMP METB) Reviewed date:04/05/2024 08:21:55 PM Interpretation: Performing Lab: Notes/Report: [facility] ,Qizlqp296028-218 mmol/LPotassium4.03.5-5.1 mmol/JUnjhltug34991-609 mmol/LCarbon Ovvptsp91.821.0-32.0 mmol/LAnion Gap9.8Aswtati91458-232 mg/dLBlood Urea Nitrogen 11.07.0-18.0 mg/dLCreatinine0.790.55-1.02 mg/dLEstimated GFR ( Annamaria>60 >=60 mL/min/1.73m 2Estimated GFR (Non- Lillian>60>=60 mL/min/1.73m 2BUN Creatinine Ratio13.8Kpchuya5.08.5-10.1 mg/dLBilirubin Total0.70.2-1.0 mg/dL Aspartate Amino Ntfdmurmerq5160-18 U/LAlanine Nwqbtjovuhhiibiz0368-21 U/L Alkaline Nnocsesqtif7646-880 U/LTotal Protein6.86.4-8.2 g/dLAlbumin Level3.53.4- 5.0 g/dLGlobulin3.3Albumin Globulin Ratio1.1Performing Lab:see noteML - [facility] LBT4 Reviewed date:04/05/2024 08:21:55 PM Interpretation: Performing Lab: Notes/Report: [facility] ,T4 Nctnhbyhz21.204.80-13.90 ug/dLPerforming Lab:see noteML - [facility] LBTSH Reviewed date:04/05/2024 08:21:55 PM Interpretation: Performing Lab: Notes/Report: [facility] ,Thyroid Stimulating Hormone1.3610.358-3.740 uIU/mLPerforming Lab:see noteML - [facility] LBXR DEXA axial skeleton Reviewed date:04/05/2024 08:21:55 PM Interpretation: Performing Lab: Notes/Report: Source Facility: [facility]-[address] [place] [address] [place] [address] XRay Report Signed Patient: NEHEMIAS COLMENARES MR#: [id number] : 1950 Acct:[id number] Age/Sex: 73 / F ADM Date: 04/05/24 Loc: RAD Attending Dr: Inessa Logan M.D. Ordering Physician: Inessa Logan M.D. Date of Service: 04/05/24 Procedure(s): XR DEXA axial skeleton Accession Number(s): [id number] cc: Inessa Logan M.D. [place] [id number] Patient Name: NEHEMIAS COLMENARES MRN: [id number] date: 1950 Sex: F Assigned Patient Location: [facility] Current Patient Location: [facility] Accession/Order Number: [id number] Exam Date: 04/05/2024 11:35 Report Date: 04/05/2024 14:23 At the request of: INESSA LOGAN Procedure: XR DEXA axial skeleton EXAMINATION: XR DEXA axial skeleton HISTORY: Other Specified Bone Density And Structure Disorder COMPARISON: No relevant comparison available. TECHNIQUE: Dual-energy X-ray absorptiometry (DXA) was performed. FINDINGS: SPINE ANALYSIS: Average bone mineral density is 1.171 g/cm2. T-score (standard deviation relative to young adult mean): -0.1 . HIP ANALYSIS: Lowest bone mineral density is within the left femoral neck, 0.67 g/cm2. T-score (standard deviation relative to young adult mean): -1.2 . XR/XR DEXA axial skeleton IMPRESSION: World Health Organization Classification: Osteopenia - Moderate Fracture Risk FRAX: Cannot be calculated. Pharmacologic treatment recommendations * No uniform recommendation applies to all patients. Management plans must be individualized. * Consider initiating pharmacologic treatment in postmenopausal women and men >= 50 years of age who have the following: Primary fracture prevention: * T-score <= - 2.5 at the femoral neck, total hip, lumbar spine, 33% radius (some uncertainty with existing data) by DXA. * Low bone mass (osteopenia: T-score between - 1.0 and - 2.5) at the femoral neck or total hip by DXA with a 10-year hip fracture risk >= 3% or a 10-year major osteoporosis-related fracture risk >= 20% (i.e., clinical vertebral, hip, forearm, or proximal humerus) based on the US-adapted FRAXregistered model. Secondary fracture prevention: * Fracture of the hip or vertebra regardless of BMD [4, 5]. * Fracture of proximal humerus, pelvis, or distal forearm in persons with low bone mass (osteopenia: T-score between - 1.0 and - 2.5). The decision to treat should be individualized in persons with a fracture of the proximal humerus, pelvis, or distal forearm who do not have osteopenia or low BMD [12, 13]. Moira MS, Claudine SL, Hansa KL, Elizabeth EM, Etienne KG, AJ, Aimee ES. The clinician's guide to prevention and treatment of osteoporosis. Osteoporos Int. 2021;33(10):4372-0165. doi: 10.1007/p45549-740-92756-q. Epub 2021Jul 05. Erratum in: Osteoporos Int. 2021Oct 04;: PMID: 75703676; PMCID: [id number]. Electronically authenticated by: CHANCE ESCUDERO Date: 04/05/2024 14:23 Dictated By: Chance Escudero M.D. Signed By: 04/05/241425 DD/ 22 TD/TT: It Consulting Manager:Occult Blood* Reviewed date:04/08/2024 08:05:17 PM Interpretation: Performing Lab: Notes/Report: [facility] ,Occult BloodPositivePerforming Lab:see noteML - [facility] LBPROF 14(COMP METB) Reviewed date:05/02/2024 09:56:23 AM Interpretation: Performing Lab: Notes/Report: [facility] ,Eitupw459120-204 mmol/LPotassium4.33.5-5.1 mmol/LXudferwu89324-645 mmol/LCarbon Qkwzjqg07.421.0-32.0 mmol/LAnion Gap8.7Omuwyni0592-099 mg/dLBlood Urea Nitrogen 16.07.0-18.0 mg/dLCreatinine0.780.55-1.02 mg/dLEstimated GFR ( Annamaria>60 >=60 mL/min/1.73m 2Estimated GFR (Non- Lillian>60>=60 mL/min/1.73m 2BUN Creatinine Ratio20.4Nzjvyjk9.58.5-10.1 mg/dLBilirubin Total0.60.2-1.0 mg/dL Aspartate Amino Mexwajvgzhb2776-62 U/LAlanine Enmoywukqhsrslnq3210-72 U/L Alkaline Ykblzooswly4443-317 U/LTotal Protein7.06.4-8.2 g/dLAlbumin Level3.63.4- 5.0 g/dLGlobulin3.4Albumin Globulin Ratio1.1Performing Lab:see noteML - [facility] LBPROF 14(COMP METB) Reviewed date:04/14/2024 01:50:44 PM Interpretation: Performing Lab: Notes/Report: [facility] ,Yveqkj114322-288 mmol/LPotassium4.33.5-5.1 mmol/XDjqabwsf79153-678 mmol/LCarbon Yryeskf64.821.0-32.0 mmol/LAnion Gap10.5Fdmstbl2129-382 mg/dLBlood Urea Nitrogen 10.07.0-18.0 mg/dLCreatinine0.780.55-1.02 mg/dLEstimated GFR ( Annamaria>60 >=60 mL/min/1.73m 2Estimated GFR (Non- Lillian>60>=60 mL/min/1.73m 2BUN Creatinine Ratio12.5Cavdbfh6.18.5-10.1 mg/dLBilirubin Total1.10.2-1.0 mg/dL Aspartate Amino Lftfyahmcej6478-88 U/LAlanine Rrnafbaaswznvcld7828-16 U/L Alkaline Hegqyvoejzl5369-565 U/LTotal Protein7.06.4-8.2 g/dLAlbumin Level3.83.4- 5.0 g/dLGlobulin3.2Albumin Globulin Ratio1.2Performing Lab:see noteML - [facility] LB Reason For Referral Reason PT - left knee pain Diagnosis 1 Knee pain (M25.569) Referral Organization [facility] Referring Provider First Name Shamar Referring Provider Last Name Hellen Referring Provider Speciality Family Med icine Referred Provider [facility], Physical Therap y Referred Provider Specialty Physical The rapist Referral Priority Routine Medications Medication SIG (Take, Route, Frequency, Duration) Notes Start Date End Date Status Vitamin D3 50 MCG (1999) 1 capsule Orally Onc e a day; Duration: 30 days 5ActivePantoprazole Sodium 40 MGtake 1 tablet by mouth every evening Oral; Duration: 30 DaysActiveCalcium 600 MG1 tablet with meals Orally Twice a day; Duration: 30 days5Active Immunizations Vaccine Route Administration Date Status Comme nts Tdap (Adacel) IM Intramuscular 11/01/2024 Administered Social History Tobacco Use: Social History Observation Description Date Details (start date - stop date) Never Smoker NA - NA Tobacco Use/Smoking Question Answer Notes Patient is a nonsmoker Alcohol Screen (Audit-C) Question Answer Notes Did you have a drink containing alcohol in the p ast year? No Yddgxt5NixyuwzpfbgwhoHpamipovQIVFV-U (Standard) Question Answer Notes Did you have a drink containing alcohol in the p ast year? No Wmtqzz8AwgjuyqxztrgvfObjtvdyw Problems Problem Type SNOMED Code ICD Code Onset Dates Problem Status W/U Status Risk Notes Problem Gastro-esophageal re flux disease with esophagitis (474945039) Gastro-esophageal reflux disease with esophagitis (K21.0) ActiveconfirmedProblemUrinary tract infectious disease (disorder) (28028654) Urinary tract infection, site not specified (N39.0)ActiveconfirmedProblem Hyperlipidaemia (17579951)Hyperlipemia (E78.5)ActiveconfirmedProblemHypertension (72152833)Hypertension (I10)ActiveconfirmedProblemRheumatoid arthritis (36923114)Rheumatoid arthritis (M06.9)ActiveconfirmedProblemGastroesophageal reflux disease (907578280)GERD (gastroesophageal reflux disease) (K21.9)Active confirmedProblemCarpal tunnel syndrome (86900173)Carpal tunnel syndrome (G56.00) ActiveconfirmedProblemObstructive sleep apnea (47641714)Obstructive sleep apnea (G47.33)ActiveconfirmedProblemKnee pain (0776276962)Knee pain (M25.569)Active confirmedProblemUrinary incontinence (243348557)Urinary incontinence (R32)Active confirmedProblemVitamin D deficiency (57455123)Vitamin D deficiency (E55.9) ActiveconfirmedProblemDiarrhea (23699267)Diarrhea (R19.7)ActiveconfirmedProblem Fatty liver (025760263)Fatty liver (K76.0)ActiveconfirmedProblemBright red blood per rectum (405084515)Bright red blood per rectum (K62.5)ActiveconfirmedProblem High ankle sprain of right lower extremity, initial encounter (S93.081S)Active confirmed Vital Signs Blood pressure diastolic 82 mm Hg 01/12/2025 Wqndye53 in01/12/2025lood pressure izwnwjrx996 mm Hg01/12/20258537Bnmqul812.0 lbs 01/12/2025BMI33.3 kg/m201/12/2025 Encounters Encounter Location Date Provider Diagnosis [address] [address] 07/12/2024 Shamar Hoy Bright red blood per rectum K62.5 and Hypertension I10 [address] [address] 07/28/2024 Shamar Hoy Rheumatoid arthritis M06.[address] [address] 11/01/2024 Shamar Hoy Second degree burn T 30.0 ; Left hip pain M25.552 and Encounter for immunization Z23 [address] [address] 01/12/2025 Shamar Hoy Knee pain M25.569 ; Low back pain 724.5 and Low back pain at multiple sites M54.50 [facility] [address] [place] [address] 04/01/2024 Shamar Hoy Encounter for Medic are annual wellness exam Z00.00 [facility] [address] [place] [address] 03/11/2024 Shamar Hoy [facility] [place] [address] 04/01/2024Doug HoyVitamin D deficiency E55.9 and Screening for osteoporosis Z13.820[facility] [facility] [place] [address]/Doug HoyElevated liver function tests R94.5BP[facility] [place] [facility] [place] [address]/Doug Hoy [facility] [place] [address] 04/14/2024Doug HoyFatty liver K76.0[place] [address] [facility] [place] [address]/07/2024[facility]oyBV[facility] [address] [facility] [place] [address]/Doug Hoy Assessments Encounter Date Diagnosis (ICD Code) Assessment Notes Treatment Notes Treatment Clinical Notes Section Notes 11/01/2024 Second degree burn (ICD-10 - T30 .0) 11/01/2024Left hip pain (ICD-10 - M25.552)04/01/2024Encounter for Medicare annual wellness exam (ICD-10 - Z00.00)Patient presents to the office for an initial medicare wellness appointment. A total of 45 minutes was spent with the patient. Patient does have concerns of falling and has fallen over the summer. Patient has never had a bone density dexa study and would like one ordered, also patient has not had labs in over a year so patient is requesting labs. patient did decline pneumonia and flu vaccines, she said the last time she had labs that they made her very sick so she decided she will not be getting any more labs. A SLUMS memory test was completed and the patient scored 100%07/12/2024right red blood per rectum (ICD-10 - K62.5)07/12/2024Hypertension (ICD-10 - I10)07/28/2024 Rheumatoid arthritis (ICD-10 - M06.9)04/01/2024Vitamin D deficiency (ICD-10 - E55.9)04/01/2024Screening for osteoporosis (ICD-10 - Z13.820)04/05/2024Elevated liver function tests (ICD-10 - R94.5)04/14/2024Fatty liver (ICD-10 - K76.0) 01/12/2025Knee pain (ICD-10 - M25.569)01/12/2025Low back pain (ICD9-CM - 724.5) 11/01/2024Encounter for immunization (ICD-10 - Z23)01/12/2025Low back pain at multiple sites (ICD-10 - M54.50) Plan Of Treatment Pending Test Test Name Order Date CMP (COMPLETE METABOLIC PANEL) UA (URINALYSIS, COMPLETE) 11/28/2022 UA (URINALYSIS, COMPLETE) 12/02/2022 HEMOGLOBIN A1C (GLYCO) 09/02/2022 IRON, TOTAL 09/02/2022 LIPID PANEL (CHOL/TRIG/HDL/LDL) 09/03/19 CBC WITH DIFF 09/02/2022 VITAMIN D, 25 LEVEL (TOTAL) 09/02/2022 Urinalysis Microscopic 11/28/2022 URINE CULTURE 11/28/2022 URINE CULTURE 11/28/2022 URINALYSIS 11/28/2022 URINALYSIS 11/28/2022 Insulin Level 09/02/2022 COMPREHENSIVE METABOLIC PROFILE WITH GFR 04/01/2024 OCCULT BLOOD, FECAL, IMMUNOASSAY 025 CMP - Comprehensive Metabolic Panel 03/11 CMP - Comprehensive Metabolic Panel 07/2024 CBC W/AUTO DIFF 04/01/2024 CULTURE URINE 11/28/2022 URINE MICROSCOPIC ONLY 12/02/2022 XR HIP LT 2 3V W PELVIS 01/12/2025 XR KNEE LT 3V 01/12/2025 XR LSPINE MIN 4 VIEWS 01/12/2025 THYROID PANEL (T4/TSH/FREE T3) THYROID PANEL (T4/TSH/FREE T3) 3 DEXA BONE DENSITY 04/01/2024 Vitamin D 04/01/2024 Lipid Panel 04/01/2024 XR pelvis 1-2V 01/12/2025 Insurance Providers Payer Name Payer Address Payer Phone Subscriber Number Group Number Insured Name Patient Relationship to Insured Coverage Start Date Coverage End Date [place]IC[place] [address] [place] [address] [id number] Colmenares, Clarence - patient is the insuredMUTUAL OF [address] MEDICARE SUPP CLMS DEPT [place] [id number] Katie ColmenaresAmiyesica - patient is the insured Medications Administered Medication Instructions Date of Administration Dosage Notes Kenalog-40 tv44Gwezhnzeyrbah 40 mg/ml mg Medical (General) History Medical History History ICD Code Obstructive sleep apnea G47.33 Sialolithiasis K11.5 Erosive esophagitis K22.10 Sebaceous cyst 706.2 Gastro-esophageal reflux disease with es ophagitis K21.0 Colon polyp K63.5 Plantar fascia syndrome M72.2 Hyperlipemia E78.5 Vertigo R42 Uterine cancer C55 Surgical History Surgery Date(Month/Year) Total Abd Hysterectomy C-sectionTonsillectomy
--- OUTSIDE RECORDS SUMMARY | 2025-01-12 14:35 | XMS_ITS | Clinical Summary ---
Author Organization [facility] Address [address] [place] [address] Care Team Providers Care Health Aide Name Role Phone Lucas Macedo MD Primary Care Provider [phone] Allergies Active AllergyReactionsCriticalityNoted JtutNoslmsvqHgfmpvrbwec33/26/2007 ErythromycinGI yqcgeojehym97/26/7070Bnandmonpwp19/26/2007 Other Reaction(s): Other (See Comments) uncontrollable symptoms-pt will explain Medications MedicationSigDispense QuantityRefillsLast FilledStart DateEnd DateStatus pantoprazole (ProtoNix) 40 MG EC tablet Take 40 mg by mouth at ufnqfmp58/03/2024Active Active Problems ProblemNoted DateDiagnosed DateOSA (obstructive sleep apnea)08/20/2023Snoring 08/20/2023aytime cvuorckpfnsbbsb73/12/4090Wyaplmxrzrov95/12/2024 Gastroesophageal reflux rdisrkr5808/20/2023 Encounters DateTypeDepartmentCare EfqhGcnguevidhc74/04/2025 1:45 PM ESTOffice [facility] [address] [place] [phone] Demetrius Fontana DPM 01/11/2025amboo flowsheet [facility] [address] [place] [phone] Demetrius Fontana DPM 01/11/20251993Tybajx84/30/2025 1:30 PM EDTOffice Visit [facility] [address] [place] [phone] Demetrius Fontana DPM Grade 3 ankle sprain (Primary Dx); Acute right ankle pain12/07/2024amboo flowsheet [facility] [address] [place] [address] Demetrius Fontana, DPM 12/07/20243293Wmaqcn72/09/2025 12:15 PM EDTOffice Visit [facility] [address] [place] [address] Demetrius Fontana DPM Grade 3 ankle sprain (Primary Dx); Acute right ankle pain11/16/2024amboo flowsheet [facility] [address] [place] [address] Demetrius Fontana, KASSIM 11/16/20244223Rxwmnf70/26/2025 9:05 AM EDTAncillary Procedure [facility] [address] [place] [address] 11/02/2024 9:00 AM EDTOffice Visit [facility] [address] [place] [address] Demetrius Fontana DPM Grade 3 ankle sprain (Primary Dx); Acute right ankle pain11/02/2024amboo [facility] [address] [place] [address] Demetrius Fontana, DPM 11/02/2024Travelfrom Last 3 Months Family History Medical HistoryRelationNameCommentsHeart failureFatherKidney failureMother RelationNameStatusCommentsFatherDeceasedMotherDeceased Social History Tobacco UseTypesPacks/DayYears UsedDateSmoking Tobacco: NeverSmokeless Tobacco: Never Tobacco Cessation:Counseling Given: Not Answered Alcohol UseStandard Drinks/WeekCommentsNever0 (1 standard drink = 0.6 oz pure alcohol)CommentsUnknownSex and Gender InformationValueDate RecordedSex Assigned at BirthNot on fileLegal HgrKhiqiy05/01/2023 8:33 PM EDTGender Identity Not on fileSexual OrientationNot on file Last Filed Vital Signs Vital SignReadingTime TakenCommentsBlood Oktlillr624/8611 1:50 PM EST Oykfx945901/11/2025 1:50 PM ESTTemperature--Respiratory Rate--Oxygen Qmcmzwfktc24% 08/20/2023 12:34 PM EDTInhaled Oxygen Concentration--Vizzil35.5 kg (193 lb) 01/11/2025 1:50 PM DOZCkigyc594.6 cm (5' 4 )01/11/2025 1:50 PM ESTBody Mass Index33.13103/13/2024 1:50 PM EST Plan of Treatment Health MaintenanceDue DateLast DoneCommentsCT Tsrorbixuqmy04/10/1950FIT-DNA 1950FIT1950FOBT12/17/19496809Kwysvwotzsiop73/10/1950Pneumococcal Vaccine: 65+ Years (1 of 1 - PCV)12/18/1999COVID-19 Vaccine (3 - season) /, 10/03/2020Influenza Vaccine (#1)5Colonoscopy /3Colorectal Cancer Sclgcrwdb32/06/2033 Procedures Procedure NamePriorityDate/TimeAssociated DiagnosisCommentsXR ANKLE 2 VIEWS BUROMWcscrhn31/26/2025 9:00 AM EDT Acute right ankle pain from Last 3 Months Results * XR ankle 2 views right (11/02/2024 9:00 AM EDT)Anatomical RegionLaterality ModalityLower Extremities, AnkleRightRadiographic ImagingSpecimen (Source) Anatomical Location / LateralityCollection Method / VolumeCollection Time Received Time Narrative 11/02/2024 2:40 PM EDT Imaging Result: XRAY RIGHT ANKLE: AP/LAT- No fx, dist fib with calcification and ant ankle(tib/talar joint) with TN,STJ both facets decr space and marginal osteophytes Authorizing ProviderResult TypeResult StatusChristopher Tha Fontana DPMIMG XR PROCEDURESFinal Result from Last [address] [place] [id number] Care Teams Team MemberRelationshipSpecialtyStart Date Lucas Macedo MD [address] [place] [phone] PCP - GeneralFamily Medicine11/02/24
--- OUTSIDE RECORDS SUMMARY | 2025-01-12 14:35 | XMS_ITS | Encounter Summary ---
Author Organization [facility] Address [address] [place] [address] Care Team Providers Care Patient Services Rep Name Role Phone Lucas Macedo MD Primary Care Provider [phone] Encounter Details DateTypeDepartmentCare Team (Latest Contact Info)Vasceutpaik10/04/2025Travel Social History Tobacco UseTypesPacks/DayYears UsedDateSmoking Tobacco: NeverSmokeless Tobacco: NeverAlcohol UseStandard Drinks/WeekCommentsNever0 (1 standard drink = 0.6 oz pure alcohol)CommentsUnknownSex and Gender InformationValueDate Recorded Sex Assigned at BirthNot on fileLegal AneGfakbz88/01/2023 8:33 PM EDTGender IdentityNot on fileSexual OrientationNot on filedocumented as of this encounter Plan of Treatment Not on file documented as of this encounter Visit Diagnoses Not on filedocumented in this encounter Care Teams Team MemberRelationshipSpecialtyStart DateEnd Lucas Macedo MD [address] [place] [address] PCP - GeneralFamily Medicine11/02/24documented as of this encounter
--- OUTSIDE RECORDS SUMMARY | 2025-01-12 14:35 | XMS_ITS | Clinical Summary ---
Author Organization [facility] Data Maid [facility] tem Address [id number] [address] [place] [address] Care Team Providers Care Dumpster Operator Name Role Phone Lucas Macedo MD Primary Care Provider [phone] Allergies Active AllergyReactionsCriticalityNoted IggcDwgqrzfrSrqzjyntkov22/26/2007 ErythromycinNausea And Zblmymbh26/26/2007PenicillinsOther (See Comments) 07/03/2006 uncontrollable symptoms-pt will explain Medications MedicationSigDispense QuantityRefillsLast FilledStart DateEnd DateStatus omeprazole (PriLOSEC) 40 mg capsule Take 1 capsule (40 mg total) by mouth in the morning. 30 capsule ctive Active Problems No known active problems Encounters DateTypeDepartmentCare UojtXiqbbpxregk19/12/2025Telephone [facility] [address] [place] [address] Lisseth Coburn CMA from Last 3 Months Family History Medical HistoryRelationNameCommentsHeart attackFatherStrokeFatherPancreatic cancerMaternal AuntHeart failureMotherKidney failureMotherHeart attackSister RelationNameStatusCommentsBrotherAliveFatherDeceasedMaternal AuntDeceasedMother DeceasedSisterDeceased Social History Tobacco UseTypesPacks/DayYears UsedDateSmoking Tobacco: FormerCigarettes0.516 1966 - 1982Smokeless Tobacco: Never Tobacco Cessation:Counseling Given: Not Answered Alcohol UseStandard Drinks/WeekCommentsNot Currently0 (1 standard drink = 0.6 oz pure alcohol)ChildcareAnswerDate OxcdahvgGlwsjiyswUlkcufb79/12/2019Employment AnswerDate AblfzwdwWmojzzhqpoTakoeoz27/12/2019CommentsNoSex and Gender InformationValueDate RecordedSex Assigned at BirthNot on fileLegal SexFemale 10/13/2014 11:32 AM EDTGender IdentityNot on fileSexual OrientationNot on file Last Filed Vital Signs Vital SignReadingTime TakenCommentsBlood Unemkxyq941/8805/13/2022 10:00 AM EST Hxybn113105/13/2022 10:00 AM RDWXyrodlcamff83.8 ??C (98.3 ??F)05/13/2022 6:59 AM ESTRespiratory Oerm885305/13/2022 10:00 AM ESTOxygen Bacujcstfh585%05/13/2022 10:00 AM ESTInhaled Oxygen Concentration--Hqkhpf47.7 kg (189 lb)05/13/2022 6:59 AM HVVFctwev410.3 cm (5' 3.5 )05/13/2022 6:59 AM ESTBody Mass Index32.95 05/13/2022 6:59 AM EST Plan of Treatment Health MaintenanceDue DateLast DoneCommentsDepression Mvrxxehca70/10/1962Tobacco Ivgjhyhje75/10/1962DTaP,Tdap and Td Vaccines (1 - Tdap)1968Fall Risk Kfrkpfzpm77/10/2015COVID-19 Vaccine (3 - 2024- season)/, 10/03/2020Influenza Fhnldac6711/08/2024RSV ( or age 60+ yrs) (1 - 1-dose 75+ series)12/17/20246704Vcyhltktvdm50, 05/13/2022Zoster (Shingles) TkvgdllRaeugapzt21/03/2022, 12/21/2020 Medical Devices Not on file Procedures Procedure NamePriorityDate/TimeAssociated EtucpfuwqKaxixlokNMCTTJOKXZT25/06/2023 9:18 AM EST from Last 3 Months or Most Recently Relevant to Health Maintenance Results * Colonoscopy (05/13/2022 9:18 AM EST)Specimen (Source)Anatomical Location / LateralityCollection Method / VolumeCollection TimeReceived Time05/13/2022 9:18 AM EST Narrative PM CARDIOVASCULAR - 05/13/2022 9:35 AM EST [facility] Patient Name: Amy Saunders ?? Procedure Date No Time: 05/13/2022 ?? CSN : [id number] Date of : 1950 Admit Type: Outpatient Age: 71 Room: [facility] OR Gender: Female Note Status: Finalized Attending MD: Pawan Bowie DO Procedure: ? Colonoscopy Indications: ? Clinically significant diarrhea of unexplained origin, ? Family history of colon cancer Providers: ? Pawan Bowie DO Medicines: ? Propofol per Anesthesia Complications: ? No immediate complications. Procedure: ? After I obtained informed consent, the scope was ? passed under direct vision. Throughout the procedure, ? the patient's blood pressure, pulse, and oxygen ? saturations were monitored continuously. The OLYMPUS ? [id number] #[id number] ADULT COLONOSCOPE was introduced ? through the anus and advanced to the cecum, identified ? by appendiceal orifice and ileocecal valve. The ? colonoscopy was performed without difficulty. The ? patient tolerated the procedure well. The quality of ? the bowel preparation was good. Findings: ? The perianal and digital rectal examinations were normal. ? The colon (entire examined portion) appeared normal. ? Biopsies for histology were taken with a cold forceps from the right ? colon, transverse colon and descending colon for evaluation of ? microscopic colitis. ? The exam was otherwise without abnormality. Estimated Blood Loss: ??Estimated blood loss: none. Impression: ?- The entire examined colon is normal. ? - The examination was otherwise normal. ? - Biopsies were taken with a cold forceps from the ? right colon, transverse colon and descending colon for ? evaluation of microscopic colitis. Recommendation: ?- Discharge patient to home. ? - Repeat colonoscopy in 5 years for screening purposes. ? - Return to my office PRN. Procedure Code(s): ? --- Professional --- ? 83744, Colonoscopy, flexible; with biopsy, single or ? multiple Diagnosis Code(s): ? --- Professional --- ? R19.7, Diarrhea, unspecified ? Z80.0, Family history of malignant neoplasm of digestive organs CPT copyright 2020 [employer]. All rights reserved. The codes documented in this report are preliminary and upon donations attendant review may be revised to meet current compliance requirements. DO Pawan Greenfield DO 05/13/2022 9:35:25 AM Number of Addenda: 0 Note Initiated On: 05/13/2022 9:18 AM Procedure Note Pawan Bowie DO - 05/13/2022 [facility] Patient Name: Amy Saunders Procedure Date No Time: 05/13/2022 CSN : [id number] Date of : 1950 Admit Type: Outpatient Age: 71 Room: [place] [address] Gender: Female Note Status: Finalized Attending MD: Pawan Bowie DO Procedure: Colonoscopy Indications: Clinically significant diarrhea of unexplainedorigin, Family history of colon cancer Providers: Pawan Bowie DO Medicines: Propofol per Anesthesia Complications: No immediate complications. Procedure: After I obtained informed consent, the scope was passed under direct vision. Throughout theprocedure, the patient's blood pressure, pulse, and oxygen saturations were monitored continuously. TheOoolala CF-[id number] #[id number] ADULT COLONOSCOPE was introduced through the anus and advanced to the cecum,identified by appendiceal orifice and ileocecal valve. The colonoscopy was performed without difficulty. The patient tolerated the procedure well. The qualityof the bowel preparation was good. Findings: The perianal and digital rectal examinations were normal. The colon (entire examined portion) appeared normal. Biopsies for histology were taken with a cold forceps from the right colon, transverse colon and descending colon for evaluation of microscopic colitis. The exam was otherwise without abnormality. Estimated Blood Loss: Estimated blood loss: none. Impression: - The entire examined colon is normal. - The examination was otherwise normal. - Biopsies were taken with a cold forceps from the right colon, transverse colon and descending colonfor evaluation of microscopic colitis. Recommendation: - Discharge patient to home. - Repeat colonoscopy in 5 years for screeningpurposes. - Return to my office PRN. Procedure Code(s): --- Professional --- 16246, Colonoscopy, flexible; with biopsy, singleor multiple Diagnosis Code(s): --- Professional --- R19.7, Diarrhea, unspecified Z80.0, Family history of malignant neoplasm of digestive organs CPT copyright 2020 [employer]. All rights reserved. The codes documented in this report are preliminary and upon donations attendant reviewmay be revised to meet current compliance requirements. DO Pawan Greenfield DO 05/13/2022 9:35:25 AM Number of Addenda: 0 Note Initiated On: 05/13/2022 9:18 AM Authorizing ProviderResult TypeResult StatusMicnatasha Bowie DOGI PROCEDURE ORDERABLESFinal ResultPerforming OrganizationAddressCity/State/ZIP CodePhone Number PM CARDIOVASCULAR from Last 3 Months or Most Recently Relevant to Health Maintenance Insurance [place] [id number] Care Teams Team MemberRelationshipSpecialtyStart DateEnd Lucas Macedo MD PCP - GeneralFamily Medicine05/03/22
--- NOTE | 2025-01-12 15:05 | XR_ITS ---
The [address] [address] Patient Name: NEHEMIAS COLMENARES MRN: [id number] date: 1950 Sex: F Assigned Patient Location: [facility] Current Patient Location: Accession/Order Number: [id number] Exam Date: 01/12/2025 14:48 Report Date: 01/13/2025 09:02 At the request of: INESSA LOGAN MD Procedure: XR knee LT 3V CLINICAL DATA: Back and left hip pain when sitting for the past year. Left knee pain for the past 2 weeks following fall. LUMBAR SPINE - 4 views COMPARISON: None AP, lateral and both oblique views were obtained. There is osteopenia. There are no acute compression fractures or displacement. There is mild disc space narrowing at L1-2. Small endplate spurs are seen throughout. There is lower lumbar facet hypertrophy. No pars defects are visualized. There is mild sclerosis at the SI joints. No paraspinal soft tissue abnormalities are seen. There is atherosclerotic disease at the aorta. XR/XR knee LT 3V IMPRESSION: OSTEOPENIA AND MILD DEGENERATIVE CHANGES. NO ACUTE BONY FINDINGS. LEFT HIP WITH AP PELVIS - 3 views COMPARISON: 08/28/2018 AP view of the pelvis as well as AP and frog-lateral views of the left hip were obtained. There is osteopenia. No fracture or dislocation is identified. The hip joint spaces are maintained and there is no prominent hypertrophy. Enthesophytes are visualized at the greater trochanters. There is minor sclerosis at the SI joints. No soft tissue abnormalities are present. Pelvic hemostasis clips are present. IMPRESSION: NO ACUTE BONY FINDINGS. LEFT KNEE - 3 views COMPARISON: None AP, lateral and internal oblique views were obtained. There is osteopenia. No acute fracture or dislocation is noted. There is minimal narrowing at the medial tibiofemoral joint compartment. There is minor marginal spurring. Cystic changes are visualized at the central tibial plateau. No knee effusion or soft tissue swelling is seen. IMPRESSION: OSTEOPENIA AND MINOR DEGENERATIVE CHANGE. NO ACUTE BONY INJURY. Impression dictated by: Joycelyn Gonzalez M.D. 01/13/2025 9:02 AM Dictation Location: [place] [address] Electronically authenticated by: [id number] Y Date: 01/13/2025 09:02
--- NOTE | 2025-01-12 15:05 | XR_ITS ---
The [address] [address] Patient Name: NEHEMIAS COLMENARES MRN: [id number] date: 1950 Sex: F Assigned Patient Location: [facility] Current Patient Location: Accession/Order Number: [id number] Exam Date: 01/12/2025 14:48 Report Date: 01/13/2025 09:02 At the request of: INESSA LOGAN MD Procedure: XR knee LT 3V CLINICAL DATA: Back and left hip pain when sitting for the past year. Left knee pain for the past 2 weeks following fall. LUMBAR SPINE - 4 views COMPARISON: None AP, lateral and both oblique views were obtained. There is osteopenia. There are no acute compression fractures or displacement. There is mild disc space narrowing at L1-2. Small endplate spurs are seen throughout. There is lower lumbar facet hypertrophy. No pars defects are visualized. There is mild sclerosis at the SI joints. No paraspinal soft tissue abnormalities are seen. There is atherosclerotic disease at the aorta. XR/XR hip LT 2V w/ pelvis IMPRESSION: OSTEOPENIA AND MILD DEGENERATIVE CHANGES. NO ACUTE BONY FINDINGS. LEFT HIP WITH AP PELVIS - 3 views COMPARISON: 08/28/2018 AP view of the pelvis as well as AP and frog-lateral views of the left hip were obtained. There is osteopenia. No fracture or dislocation is identified. The hip joint spaces are maintained and there is no prominent hypertrophy. Enthesophytes are visualized at the greater trochanters. There is minor sclerosis at the SI joints. No soft tissue abnormalities are present. Pelvic hemostasis clips are present. IMPRESSION: NO ACUTE BONY FINDINGS. LEFT KNEE - 3 views COMPARISON: None AP, lateral and internal oblique views were obtained. There is osteopenia. No acute fracture or dislocation is noted. There is minimal narrowing at the medial tibiofemoral joint compartment. There is minor marginal spurring. Cystic changes are visualized at the central tibial plateau. No knee effusion or soft tissue swelling is seen. IMPRESSION: OSTEOPENIA AND MINOR DEGENERATIVE CHANGE. NO ACUTE BONY INJURY. Impression dictated by: Joycelyn Gonzalez M.D. 01/13/2025 9:02 AM Dictation Location: [place] [address] Electronically authenticated by: [id number] Y Date: 01/13/2025 09:02
--- NOTE | 2025-01-12 15:05 | XR_ITS ---
The [address] [address] Patient Name: NEHEMIAS COLMENARES MRN: [id number] date: 1950 Sex: F Assigned Patient Location: [facility] Current Patient Location: Accession/Order Number: [id number] Exam Date: 01/12/2025 14:48 Report Date: 01/13/2025 09:02 At the request of: INESSA LOGAN MD Procedure: XR knee LT 3V CLINICAL DATA: Back and left hip pain when sitting for the past year. Left knee pain for the past 2 weeks following fall. LUMBAR SPINE - 4 views COMPARISON: None AP, lateral and both oblique views were obtained. There is osteopenia. There are no acute compression fractures or displacement. There is mild disc space narrowing at L1-2. Small endplate spurs are seen throughout. There is lower lumbar facet hypertrophy. No pars defects are visualized. There is mild sclerosis at the SI joints. No paraspinal soft tissue abnormalities are seen. There is atherosclerotic disease at the aorta. XR/XR lumbar spine min 4V IMPRESSION: OSTEOPENIA AND MILD DEGENERATIVE CHANGES. NO ACUTE BONY FINDINGS. LEFT HIP WITH AP PELVIS - 3 views COMPARISON: 08/28/2018 AP view of the pelvis as well as AP and frog-lateral views of the left hip were obtained. There is osteopenia. No fracture or dislocation is identified. The hip joint spaces are maintained and there is no prominent hypertrophy. Enthesophytes are visualized at the greater trochanters. There is minor sclerosis at the SI joints. No soft tissue abnormalities are present. Pelvic hemostasis clips are present. IMPRESSION: NO ACUTE BONY FINDINGS. LEFT KNEE - 3 views COMPARISON: None AP, lateral and internal oblique views were obtained. There is osteopenia. No acute fracture or dislocation is noted. There is minimal narrowing at the medial tibiofemoral joint compartment. There is minor marginal spurring. Cystic changes are visualized at the central tibial plateau. No knee effusion or soft tissue swelling is seen. IMPRESSION: OSTEOPENIA AND MINOR DEGENERATIVE CHANGE. NO ACUTE BONY INJURY. Impression dictated by: Joycelyn Gonzalez M.D. 01/13/2025 9:02 AM Dictation Location: [place] [address] Electronically authenticated by: [id number] Y Date: 01/13/2025 09:02
== END 2025-01-12 14:31 | disposition home or self-care (01) ==
PROVIDERS: PCP Family Medicine; Visit Provider Family Medicine
DX: M25.562 Pain in left knee (principal); M25.552 Pain in left hip; M85.88 Other specified disorders of bone density and structure, other site
CPT/HCPCS: 72110; 73502; 73562

== ENCOUNTER 2025-01-14 13:00 | Outpatient (RCR) | payer MEDICARE, OTHER, SELFPAY | END 2025-02-01 07:00 | disposition home or self-care (01) | LOC: PT 13:00 | PROVIDERS: PCP Family Medicine; Visit Provider Family Medicine | DX: M25.562 Pain in left knee (principal) | CPT/HCPCS: 97110; 97112; 97162 ==